=== PATIENT | female | born 1990 | race Caucasian/White ===

== ENCOUNTER 2016-12-29 08:34 | Emergency (ER) | payer BC, OTHER, SELFPAY ==
[2016-12-29] MEDS ORDERED: Ondansetron 4 MG/2 ML SDV IVPUSH ONE (09:00)
[2016-12-29] MEDS ORDERED: Sodium Chloride 0.9% 1,000 ML IV STA (09:00)
[2016-12-29] MEDS ORDERED: Sodium Chloride 0.9% 10 ML Syringe FLUSH PRN ×2 (09:00→09:53)
[2016-12-29] MEDS ORDERED: HYDROmorphone 1 MG/ML Syringe IVPUSH ONE ×2 (09:01→10:13)
--- NOTE | 2016-12-29 09:06 | EDM.PDOC ---
ED HPI GENERAL MEDICAL PROBLEM - General Chief Complaint: Abdominal Pain Stated Complaint: BACK AND ABDOMINAL PAIN Time Seen by Provider: 12/29/16 08:59 Source of Information: Reports: Patient History Limitations: Reports: No Limitations - History of Present Illness INITIAL COMMENTS - FREE TEXT/NARRATIVE: The patient presents with mid back pain and epigastric abdominal pain that started a few days ago. She was evaluated in the clinic for possible kidney stones. They did a KUB and there was concerns she has a SBO. She has nausea and vomiting. She has not had a bowel movement in a few days. She has no fever , chills, cough, chest pain or shortness of breath. She has some dysuria. She has had cholecystectomy and gastric bypass. Onset: Gradual Duration: Day(s): Location: Reports: Abdomen, Back Quality: Reports: Sharp Severity: Severe Improves with: Reports: None Worsens with: Reports: None Associated Symptoms: Reports: Nausea/Vomiting. Denies: Confusion, Chest Pain, Cough, Fever/Chills, Headaches, Shortness of Breath Back Pain Score (Numeric/FACES): 6 - Related Data Allergies Allergy/AdvReac Type Severity Reaction Status Date / Time amoxicillin Allergy Rash Verified 12/29/16 08:45 Penicillins Allergy Rash Verified 12/29/16 08:45 sulfamoxole Allergy Rash Verified 12/29/16 08:45 Home Meds: Home Meds Hydrocodone/Acetaminophen [Hydrocodon-Acetaminophn 10-325] 1 tab PO BID PRN 03/05 [History] L.acidoph,Paracasei, B.lactis [Probiotic] 1 each PO DAILY 12/29/16 [History] Losartan/Hydrochlorothiazide [Losartan-HCTZ 50-12.5 MG] 1 each PO DAILY [History] Metoclopramide HCl [Reglan] 10 mg PO Q6HR PRN #20 tablet 12/29/16 [Rx] Ondansetron [Zofran ODT] 4 mg PO Q6H PRN 12/29/16 [History] Past Medical History Cardiovascular History: Reports: Hypertension - Past Surgical History GI Surgical History: Reports: Bariatric Procedure, Cholecystectomy Social & Family History - Tobacco Use Smoking Status *Q: Current Every Day Smoker Years of Tobacco use: 3 Packs/Tins Daily: 0.3 - Caffeine Use Caffeine Use: Reports: Coffee, Energy Drinks, Soda, Tea - Recreational Drug Use Recreational Drug Use: No ED ROS GENERAL - Review of Systems Review Of Systems: See Below Constitutional: Reports: No Symptoms HEENT: Reports: No Symptoms Respiratory: Reports: No Symptoms Cardiovascular: Reports: No Symptoms Endocrine: Reports: No Symptoms GI/Abdominal: Reports: Abdominal Pain, Nausea, Vomiting. Denies: Diarrhea : Reports: Dysuria Musculoskeletal: Reports: No Symptoms Skin: Reports: No Symptoms Neurological: Reports: No Symptoms ED EXAM, GI/ABD - Physical Exam Exam: See Below Exam Limited By: No Limitations General Appearance: Alert, No Apparent Distress Ears: Normal External Exam Nose: Normal Inspection Head: Atraumatic, Normocephalic Neck: Normal Inspection Respiratory/Chest: No Respiratory Distress, Lungs Clear, Normal Breath Sounds Cardiovascular: Regular Rate, Rhythm, No Edema, No Murmur GI/Abdominal Exam: Soft, No Organomegaly, No Mass, Tender (Moderate pain to the upper abdomen) Course - Vital Signs Last Recorded V/S: Last Vital Signs Temp 97.4 F 12/29/16 08:40 Pulse 69 12/29/16 08:40 Resp 16 12/29/16 08:40 BP 143/86 H 12/29/16 08:40 Pulse Ox 96 12/29/16 08:40 - Orders/Labs/Meds Orders: Active Orders 24 hr Category Date Time Status Peripheral IV Care [RC] . DIRECTED Care 12/29/16 09:00 Active Sodium Chloride 0.9% [Saline Flush] Med 12/29/16 09:00 Active 10 ml FLUSH ASDIRECTED PRN Sodium Chloride 0.9% [Saline Flush] Med 12/29/16 09:53 Active 10 ml FLUSH ONETIME PRN ED Antiemetic Medication Reflex [OM.PC] Stat Oth 12/29/16 09:00 Ordered Peripheral IV Insertion Adult [OM.PC] Stat Oth 12/29/16 09:00 Ordered Medication Orders Sodium Chloride (Saline Flush) 10 ml FLUSH ASDIRECTED PRN PRN Reason: Keep Vein Open Last Admin: 12/29/16 09:09 Dose: 10 ml Sodium Chloride (Saline Flush) 10 ml FLUSH ONETIME PRN PRN Reason: IV FLUSH Last Admin: 12/29/16 10:42 Dose: 10 ml Labs: Laboratory Tests 12/29/16 12/29/16 12/29/16 Range/Units 08:45 08:45 08:45 WBC 5.01 (3.98-10.04) K/mm3 RBC 4.22 (3.98-5.22) M/mm3 Hgb 10.3 L (11.2-15.7) gm/L Hct 32.4 L (34.1-44.9) % MCV 76.8 L (79.4-94.8) fl MCH 24.4 L (25.6-32.2) pg MCHC 31.8 L (32.2-35.5) g/dl RDW Std Deviation 43.7 (36.4-46.3) fL Plt Count 277 (182-369) K/mm3 MPV 10.2 (9.4-12.3) fl Neut % (Auto) 60.3 (34.0-71.1) % Lymph % (Auto) 30.1 (19.3-51.7) % [place] % (Auto) 8.2 (4.7-12.5) % Eos % (Auto) 1.2 (0.7-5.8) Baso % (Auto) 0.2 (0.1-1.2) % Neut # (Auto) 3.02 (1.56-6.13) K/mm3 Lymph # (Auto) 1.51 (1.18-3.74) K/mm3 [place] # (Auto) 0.41 H (0.24-0.36) K/mm3 Eos # (Auto) 0.06 (0.04-0.36) K/mm3 Baso # (Auto) 0.01 (0.01-0.08) K/mm3 Sodium 139 (136-145) mEq/L Potassium 3.6 (3.5-5.1) mEq/L Chloride 105 (98-107) mEq/L Carbon Dioxide 24 (21-32) mEq/L Anion Gap 13.6 (5-15) BUN 6 L (7-18) mg/dL Creatinine 0.7 (0.55-1.02) mg/dL Est Cr Clr Drug Dosing 90.29 mL/min Estimated GFR (MDRD) > 60 (>60) mL/min BUN/Creatinine Ratio 8.6 L (14-18) Glucose 112 H (74-106) mg/dL Calcium 9.0 (8.5-10.1) mg/dL Total Bilirubin 0.6 (0.2-1.0) mg/dL AST 22 (15-37) U/L ALT 26 (14-59) U/L Alkaline Phosphatase 88 (46-116) U/L Total Protein 6.8 (6.4-8.2) g/dl Albumin 3.7 (3.4-5.0) g/dl Globulin 3.1 gm/dL Albumin/Globulin Ratio 1.2 (1-2) Lipase 96 (73-393) U/L HCG, Qual Negative (NEGATIVE) Urine Color (Yellow) Urine Appearance (Clear) Urine pH (5.0-8.0) Ur Specific [place] (1.005-1.030) Urine Protein (Negative) Urine Glucose (UA) (Negative) Urine Ketones (Negative) Urine Occult Blood (Negative) Urine Nitrite (Negative) Urine Bilirubin (Negative) Urine Urobilinogen (0.2-1.0) Ur Leukocyte Esterase (Negative) Urine RBC (0-5) /hpf Urine WBC (0-5) /hpf Ur Epithelial Cells (0-5) /hpf Urine Bacteria (FEW) /hpf Urine Mucus (FEW) /hpf 12/29/16 Range/Units 11:40 WBC (3.98-10.04) K/mm3 RBC (3.98-5.22) M/mm3 Hgb (11.2-15.7) gm/L Hct (34.1-44.9) % MCV (79.4-94.8) fl MCH (25.6-32.2) pg MCHC (32.2-35.5) g/dl RDW Std Deviation (36.4-46.3) fL Plt Count (182-369) K/mm3 MPV (9.4-12.3) fl Neut % (Auto) (34.0-71.1) % Lymph % (Auto) (19.3-51.7) % [place] % (Auto) (4.7-12.5) % Eos % (Auto) (0.7-5.8) Baso % (Auto) (0.1-1.2) % Neut # (Auto) (1.56-6.13) K/mm3 Lymph # (Auto) (1.18-3.74) K/mm3 [place] # (Auto) (0.24-0.36) K/mm3 Eos # (Auto) (0.04-0.36) K/mm3 Baso # (Auto) (0.01-0.08) K/mm3 Sodium (136-145) mEq/L Potassium (3.5-5.1) mEq/L Chloride (98-107) mEq/L Carbon Dioxide (21-32) mEq/L Anion Gap (5-15) BUN (7-18) mg/dL Creatinine (0.55-1.02) mg/dL Est Cr Clr Drug Dosing mL/min Estimated GFR (MDRD) (>60) mL/min BUN/Creatinine Ratio (14-18) Glucose (74-106) mg/dL Calcium (8.5-10.1) mg/dL Total Bilirubin (0.2-1.0) mg/dL AST (15-37) U/L ALT (14-59) U/L Alkaline Phosphatase (46-116) U/L Total Protein (6.4-8.2) g/dl Albumin (3.4-5.0) g/dl Globulin gm/dL Albumin/Globulin Ratio (1-2) Lipase (73-393) U/L HCG, Qual (NEGATIVE) Urine Color Yellow (Yellow) Urine Appearance Clear (Clear) Urine pH 5.5 (5.0-8.0) Ur Specific [place] 1.015 (1.005-1.030) Urine Protein Trace H (Negative) Urine Glucose (UA) Negative (Negative) Urine Ketones 1+ H (Negative) Urine Occult Blood Negative (Negative) Urine Nitrite Negative (Negative) Urine Bilirubin Negative (Negative) Urine Urobilinogen 0.2 (0.2-1.0) Ur Leukocyte Esterase Negative (Negative) Urine RBC Not seen (0-5) /hpf Urine WBC 5-10 H (0-5) /hpf Ur Epithelial Cells 10-20 H (0-5) /hpf Urine Bacteria Few (FEW) /hpf Urine Mucus Few (FEW) /hpf Meds: Medications Generic Name Dose Route Start Last Admin Trade Name Freq PRN Reason Stop Dose Admin Sodium Chloride 10 ml 12/29/16 09:00 12/29/16 09:09 Saline Flush FLUSH 10 ml ASDIRECTED PRN Administration Keep Vein Open Sodium Chloride 10 ml 12/29/16 09:53 12/29/16 10:42 Saline Flush FLUSH 10 ml ONETIME PRN Administration IV FLUSH Discontinued Medications Generic Name Dose Route Start Last Admin Trade Name Danny PRN Reason Stop Dose Admin Diatrizoate Meglum/Diatrizoate Sod 45 ml 12/29/16 09:53 12/29/16 10:42 Gastrografin 37% PO 12/29/16 09:54 45 ml ONETIME ONE Administration Hydromorphone HCl 1 mg 12/29/16 09:01 12/29/16 09:09 Dilaudid IVPUSH 12/29/16 09:02 1 mg ONETIME ONE Administration Hydromorphone HCl 1 mg 12/29/16 10:13 12/29/16 10:17 Dilaudid IVPUSH 12/29/16 10:14 1 mg ONETIME ONE Administration Sodium Chloride 1,000 mls @ 1,000 mls/hr 12/29/16 09:00 12/29/16 09:07 Normal Saline IV 12/29/16 09:59 1,000 mls/hr .BOLUS STA Administration Iopamidol 125 ml 12/29/16 09:53 12/29/16 10:41 Isovue-300 (61%) IVPUSH 12/29/16 09:54 125 ml ONETIME ONE Administration Metoclopramide HCl 10 mg 12/29/16 10:25 12/29/16 10:29 Reglan IVPUSH 12/29/16 10:26 10 mg ONETIME ONE Administration Ondansetron HCl 4 mg 12/29/16 09:00 12/29/16 09:07 Zofran IVPUSH 12/29/16 09:01 4 mg ONETIME ONE Administration - Re-Assessments/Exams Free Text/Narrative Re-Assessment/Exam: 12/29/16 09:06 I ordered an IV NS 1L bolus, zofran 4mg IV, dilaudid 1mg IV, labs, UA and a CT of her abdomen and pelvis. 12/29/16 11:38 Her CBC and CMP look good. Her HCG is negative. She had more pain so I ordered more dilaudid 1mg IV. Her CT shows nothing acute. She has some small cysts on both kidneys. No findings to suggest bowel obstruction by CT exam. She can give us a urine sample now. 12/29/16 12:09 Her UA shows no UTI. I feel she had and early bowel obstruction and now that has resolved on CT. I will have her start out with liquids today and advance her diet as tolerated. Departure - Departure Time of Disposition: 12:10 Disposition: Home, Self-Care 01 Condition: Good Clinical Impression: Abdominal pain Qualifiers: Abdominal location: epigastric Qualified Code(s): R10.13 - Epigastric pain - Discharge Information Prescriptions: Metoclopramide HCl [Reglan] 10 mg PO Q6HR PRN #20 tablet PRN Reason: Nausea/Vomiting Referrals: Virginie Glass, [facility] [facility] [Primary Care Provider] - 1 Week Forms: ED Department Discharge Additional Instructions: Start off with just liquids today and advance your diet as tolerated. Take the reglan for any nausea or vomiting. Please return if the pain gets worse and constant. Follow up with Virginie Glass in the next week. - My Orders Last 24 Hours: My Active Orders 12/29/16 09:00 Peripheral IV Care [RC] . DIRECTED Sodium Chloride 0.9% [Saline Flush] 10 ml FLUSH ASDIRECTED PRN ED Antiemetic Medication Reflex [OM.PC] Stat Peripheral IV Insertion Adult [OM.PC] Stat 12/29/16 09:53 Sodium Chloride 0.9% [Saline Flush] 10 ml FLUSH ONETIME PRN - Assessment/Plan Last 24 Hours: My Active Orders 12/29/16 09:00 Peripheral IV Care [RC] . DIRECTED Sodium Chloride 0.9% [Saline Flush] 10 ml FLUSH ASDIRECTED PRN ED Antiemetic Medication Reflex [OM.PC] Stat Peripheral IV Insertion Adult [OM.PC] Stat 12/29/16 09:53 Sodium Chloride 0.9% [Saline Flush] 10 ml FLUSH ONETIME PRN
[2016-12-29] MEDS ORDERED: Iopamidol 612 MG/ML 150 ML Bottle IVPUSH ONE (09:53)
[2016-12-29] MEDS ORDERED: Diatrizoate Meglumine/Diatrizoate Sodium 37% 120 ML Bottle PO ONE (09:53)
[2016-12-29] MEDS ORDERED: Metoclopramide 10 MG/2 ML SDV IVPUSH ONE (10:25)
--- NOTE | 2016-12-29 11:39 | CT ---
CT abdomen and pelvis Technique: Multiple axial sections were obtained from above the dome of the diaphragm inferiorly through the pubic symphysis. Intravenous and oral contrast has been given. Delayed images were also obtained through the bladder. Comparison: Previous plain film study of 12/28/16. Findings: Small portion of the visualized lung bases show slight atelectasis. Liver shows no focal parenchymal abnormality. Surgical clips are seen from prior cholecystectomy. Kidneys show symmetric contrast enhancement. Small low-density lesion most likely representing minimal cyst is noted within the mid left kidney measuring about 5 mm. Smaller low-density lesion is seen within the mid to lower right kidney most likely due to additional minimal cyst. Spleen appears within normal limits. Adrenal glands show no nodule. Pancreas is within normal limits. Aorta shows no aneurysmal dilatation. No retroperitoneal adenopathy or mesenteric abnormalities are seen. No significant small bowel dilatation is seen. Nothing appreciated to indicate bowel obstruction at this time. Appendix is seen which is felt to be within normal limits. No pelvic mass or adenopathy is seen. Previous gastric surgery appears to be present. Delayed images shows contrast within the distal ureters and bladder. Bone window settings were reviewed which appear within normal limits for the patient's age. Impression: 1. No findings to suggest bowel obstruction by CT exam. 2. Small cyst believed to be present within each kidney. 3. Nothing acute is appreciated on CT study of the abdomen and pelvis. 4. Other incidental findings. Diagnostic code #2
== END 2016-12-29 12:19 | disposition home or self-care (01) ==
LOC: JD.ED 08:34
DX: R10.13 Epigastric pain (principal); F17.210 Nicotine dependence, cigarettes, uncomplicated; I10 Essential (primary) hypertension; Z88.1 Allergy status to other antibiotic agents; Z88.0 Allergy status to penicillin; Z88.2 Allergy status to sulfonamides
CPT/HCPCS: 36415; 74177; 80053; 81001; 83690; 84703; 85025; 96361; 96374; 96375; 96376; 99284; J1170; J2405; J2765; J7040; J7050; Q9963; Q9967

== ENCOUNTER 2019-11-29 05:53 | Inpatient (IN) | payer BC ==
[2019-11-29] MEDS ORDERED: Nalbuphine 10 MG/ML Syringe IVPUSH PRN (07:20)
[2019-11-29] MEDS ORDERED: Sodium Chloride 0.9% 10 ML Syringe FLUSH PRN (07:20)
[2019-11-29] MEDS ORDERED: Ondansetron 4 MG/2 ML SDV IVPUSH PRN (07:20)
[2019-11-29] MEDS ORDERED: Oxytocin/Lactated Ringers 10 UNIT/1,000 ML BAG IV SCH (07:30)
[2019-11-29] MEDS ORDERED: ceFAZolin 2 GM in Premix Bag 1 BAG IV ONE (08:00)
[2019-11-29] MEDS: Lactated Ringers 1,000 ML IV SCH ×5 (08:02→23:21)
[2019-11-29] MEDS: Oxytocin/Lactated Ringers 10 UNIT/1,000 ML BAG IV SCH ×2 (08:05→23:30)
--- NOTE | 2019-11-29 11:10 | PCM.LDHP ---
L&D History of Present Illness - General Date of Service: 11/29/19 Admit Problem/Dx: Patient Status Order with Admit Dx/Problem 11/29/19 06:04 Patient Status [ADT] Routine 11/29/19 07:20 Patient Status [ADT] Routine Admission Diagnosis/Problem Admission Diagnosis/Problem Source of Information: Patient History Limitations: Reports: No Limitations - History of Present Illness Introduction:: Luciana Loyola is a 29-year-old -0-1-0 at 36 weeks 6 days (LMP 12/21/2019) by an early ultrasound who presents for evaluation with possible rupture membranes. She reports that in the evening of 11/28/2019 she had a small gush of clear fluid after she had gone to the bathroom and then this continued throughout the evening with small amounts of fluid continuing to leak out of the vagina. She had a pad in place and noted that it was a clear fluid without any odor and was enough to soak a pad. She denies any significant cramping's but was having some occasional tightening in her abdomen that was overall unchanged from the last week or so. She reports good movement. Timing/Duration: Reports: constant/continuous (Leaking of clear fluid since around 10:30 PM last evening) Location, : Reports: Pelvic Quality: Reports: Pressure Severity: Mild Associated Symptoms: Reports: vaginal fluid, mild amount. Denies: vaginal bleeding, vaginal discharge Present Illness Comments:: Luciana Loyola is a 29-year-old -0-1-0 at 36 weeks 6 days (JAVIER 12/21/2019) by an early ultrasound who presents with spontaneous rupture of membranes. She has had routine care with myself, Dr. Martines, starting at approximately 6 weeks gestational age. Her course has been overall uncomplicated with only recent mild elevations in her blood pressure. She has a history of chronic hypertension. She received Tdap vaccine on 10/07/2019. Her is complicated by: * GBS positive with history of nonpruritic rash on amoxicillin. GBS strain is resistant to clindamycin but sensitive to vancomycin * Chronic hypertension, patient has been on aspirin 81 mg starting at 12 weeks gestational age. Mild range blood pressures over the last several weeks of her * History of gastric bypass with normal vitamin and mineral labs during . No other significant concerns regarding gastric bypass. * History of genital herpes and has been on Valtrex starting at 36 weeks gestational age MANAGER BUSINESS history G1: 06/2007, SAB at approximately 6 weeks gestational age G2: Current labs Blood type: O+ Antibody screen: Negative First trimester hematocrit/hemoglobin: 42.6%/14.3 on 04/23/2019 Platelets: 256 on 04/23/2019 Rubella status: Immune Hepatitis B surface antigen: Negative RPR: Negative HIV: Negative Gonorrhea: Negative Chlamydia: Negative Anatomy ultrasound: Normal anatomy, no abnormalities, 67th percentile with EFW 3064 g (6 pounds 12 ounces) on 11/26/2019, posterior and right lateral placenta, no previa, normal fluid on 11/26/2019 One hour glucose tolerance test: Normal blood glucose testing when checking fingerstick blood sugars at 24 to 26 weeks gestational age Second trimester hematocrit/hemoglobin: 35.2%/11.7 on 09/18/2019 Platelets: 232 on 09/18/2019 Third trimester hematocrit/hemoglobin: 35.3%/11.5 on 11/06/2019 Platelets: 221 on 11/06/2019 GBS status: Positive with resistant to clindamycin, sensitive to vancomycin - Related Data Allergies/Adverse Reactions: Allergies Allergy/AdvReac Type Severity Reaction Status Date / Time amoxicillin Allergy Rash Verified 11/29/19 07:20 Penicillins Allergy Rash Verified 11/29/19 07:20 sulfamoxole Allergy Rash Verified 11/29/19 07:20 Home Medications: Home Meds Aspirin 81 mg PO DAILY 11/29/19 [History] Cholecalciferol (Vitamin D3) [Vitamin D] 5,000 unit PO DAILY 11/29/19 [History] Cimetidine [Tagamet] 200 mg PO 11/29/19 [History] Cyclobenzaprine [Flexeril] 10 mg PO TID PRN 11/29/19 [History] L.acidoph,Paracasei, B.lactis [Probiotic] 1 each PO DAILY 11/29/19 [History] Pnv No.95/Ferrous Fum/Folic AC [ Tablet] 1 each PO DAILY 11/29/19 [History] valACYclovir HCl [Valtrex] 500 mg PO BID 11/29/19 [History] Past Medical History Cardiovascular History: Reports: Hypertension (Chronic, on lisinopril prior to ) Genitourinary History: Reports: Renal Calculus (History of kidney stones in 2009) MANAGER BUSINESS History: Reports: , Spontaneous : 2 Para: 0 Dermatologic History: Reports: Eczema Other Dermatologic History: HSV - Infectious Disease History Infectious Disease History: Reports: Herpes (Genital) - Past Surgical History GI Surgical History: Reports: Bariatric Procedure (Yoanna-en-Y gastric bypass done in 2013), Cholecystectomy (2011) Social & Family History - Family History Family Medical History: Noncontributory - Tobacco Use Smoking Status *Q: Never Smoker Second Hand Smoke Exposure: No - Tobacco Core Measures Tobacco Use/Smoking Within Last 30 Days: No Smokeless Tobacco Use in Last 30 Days: No - Caffeine Use Caffeine Use: Reports: Coffee, Energy Drinks, Soda, Tea - Alcohol Use Alcohol Use History: No - Recreational Drug Use Recreational Drug Use: No - Living Situation & Occupation Living situation: Reports: Single, with Significant Other Occupation: Employed H&P Review of Systems - Review of Systems: Review Of Systems: See Below General: Denies: Fever, Chills, Malaise, Weakness, Fatigue HEENT: Reports: Glasses. Denies: Rhinitis, Post Nasal Drip, Sinus Congestion, Sore Throat Pulmonary: Denies: Shortness of Breath, Wheezing, Pleuritic Chest Pain, Cough Cardiovascular: Reports: Palpitations (Reports that she has been having increased amounts of palpitations over the last few days). Denies: Chest Pain, Dyspnea on Exertion, Orthopnea Gastrointestinal: Denies: Abdominal Pain, Constipation, Diarrhea, Nausea, Vomiting Genitourinary: Denies: Dysuria, Frequency, Burning, Pain, Urgency Musculoskeletal: Reports: Back Pain (And pelvic pain) Skin: Denies: Rash, Lesions Psychiatric: Denies: Depression, Anxiety Neurological: Denies: Headache L&D Exam - Exam Exam: See Below - Vital Signs Vital Signs: Last Vital Signs Temp 36.6 C 11/29/19 06:04 Pulse 82 11/29/19 06:04 Resp 14 11/29/19 06:04 BP 128/95 H 11/29/19 06:04 Pulse Ox 97 11/29/19 06:04 Weight: 453.592 g - OB Specific Contraction Duration (sec): 45-60 Contraction Frequency (min): 1-3 Contraction Intensity: Mild to Moderate Movement: Active Heart Tones: Present Heart Tones per Min: 150 (+15 x 15 accelerations, intermittent variable decelerations) Heart Rate (FHR) Variability: Moderate (6-25 bmp) Presentation: Vertex Estimated Weight: 7-7.5 pounds by Isaias's - Adler Score Adler Score Cervix Position: Midposition Adler Score Consistency: Soft Adler Score Effacement: 51-70% (60%) Adler Score Dilation: 1-2 cm (2.5 cm) Daler Score Infant's Station: -2 Adler Score Total: 7 - Exam General: Alert, Oriented HEENT: Conjunctiva Clear, EOMI Neck: Supple, Trachea Midline Lungs: Clear to Auscultation, Normal Respiratory Effort Cardiovascular: Regular Rate, Regular Rhythm GI/Abdominal Exam: Soft, Non-Tender, No Distention, Other (Gravid). No: Guarding, Rigid, Rebound Genitourinary: Normal external exam Extremities: Normal Inspection, Non-Tender, No Pedal Edema Skin: Warm, Dry, Intact Psychiatric: Alert, Normal Affect, Normal Mood - Patient Data Lab Results Last 24 hrs: Laboratory Results - last 24 hr 11/29/19 11/29/19 11/29/19 Range/Units 06:15 06:19 07:40 WBC 9.01 (3.98-10.04) K/mm3 RBC 3.95 L (3.98-5.22) M/mm3 Hgb 11.9 (11.2-15.7) gm/dl Hct 36.5 (34.1-44.9) % MCV 92.4 (79.4-94.8) fl MCH 30.1 (25.6-32.2) pg MCHC 32.6 (32.2-35.5) g/dl RDW Std Deviation 45.1 (36.4-46.3) fL Plt Count 230 (182-369) K/mm3 MPV 10.1 (9.4-12.3) fl Neut % (Auto) 76.3 H (34.0-71.1) % Lymph % (Auto) 14.2 L (19.3-51.7) % Reynolds % (Auto) 8.3 (4.7-12.5) % Eos % (Auto) 0.4 L (0.7-5.8) Baso % (Auto) 0.2 (0.1-1.2) % Neut # (Auto) 6.87 H (1.56-6.13) K/mm3 Lymph # (Auto) 1.28 (1.18-3.74) K/mm3 Reynolds # (Auto) 0.75 H (0.24-0.36) K/mm3 Eos # (Auto) 0.04 (0.04-0.36) K/mm3 Baso # (Auto) 0.02 (0.01-0.08) K/mm3 Membrane Rupture Positive H COVID-19 (HARMEET) Negative (NEGATIVE) Result Diagrams: 11/29/19 07:40 - Problem List (1) 36 weeks gestation of SNOMED Code(s): 96978234 ICD Code: Z3A.36 - 36 WEEKS GESTATION OF Status: Acute Current Visit: Yes (2) Chronic hypertension during SNOMED Code(s): 62294780 ICD Code: O10.919 - UNSP PRE-EXISTING HTN COMP , UNSP TRIMESTER Status: Acute Current Visit: Yes (3) GBS (group B Streptococcus carrier), +RV culture, currently SNOMED Code(s): 4336213909189, 230869321, 9435036842951 ICD Code: O99.820 - STREPTOCOCCUS B CARRIER STATE COMPLICATING Status: Acute Current Visit: Yes (4) Penicillin allergy SNOMED Code(s): 03776591 ICD Code: Z88.0 - ALLERGY STATUS TO PENICILLIN Status: Acute Current Visit: Yes (5) History of gastric bypass SNOMED Code(s): 985460166 ICD Code: Z98.84 - BARIATRIC SURGERY STATUS Status: Acute Current Visit: Yes (6) History of herpes genitalis SNOMED Code(s): 551931798 ICD Code: Z86.19 - PERSONAL HISTORY OF OTHER INFECTIOUS AND PARASITIC DISEASES Status: Acute Current Visit: Yes Problem List Initiated/Reviewed/Updated: Yes Orders Last 24hrs: Active Orders 24 hr Category Date Time Status Patient Status [ADT] Routine ADT 11/29/19 06:04 Active Patient Status [ADT] Routine ADT 11/29/19 07:20 Active Activity as Tolerated [RC] PFP Care 11/29/19 07:20 Active Communication Order [RC] ASDIRECTED Care 11/29/19 07:20 Active Heart Tones [RC] ASDIRECTED Care 11/29/19 07:20 Active Non Stress Test [RC] PER UNIT ROUTINE Care 11/29/19 06:04 Active Non Stress Test [RC] PER UNIT ROUTINE Care 11/29/19 07:20 Active Notify Provider [RC] PFP Care 11/29/19 07:20 Active Notify Provider [RC] PRN Care 11/29/19 07:20 Active Peripheral IV Care [RC] . DIRECTED Care 11/29/19 07:20 Active Vital Signs [RC] PER UNIT ROUTINE Care 11/29/19 06:04 Active Vital Signs [RC] PER UNIT ROUTINE Care 11/29/19 07:20 Active Regular Diet [DIET] Diet 11/29/19 Breakfast Active RAPID PLASMA REAGIN,RPR [CHEM] Routine Lab 11/29/19 07:40 Received Lactated Ringers [Ringers, Lactated] 1,000 ml Med 11/29/19 07:30 Active IV ASDIRECTED Nalbuphine [Nubain] Med 11/29/19 07:20 Active 10 mg IVPUSH Q2H PRN Ondansetron [Zofran] Med 11/29/19 07:20 Active 4 mg IVPUSH Q4H PRN Oxytocin/Lactated Ringers [Pitocin in LR 10 Units/1,000 Med 11/29/19 07:30 Active ML] 10 unit in 1,000 ml IV .CONTINUOUS Oxytocin/Lactated Ringers [Pitocin in LR 10 Units/1,000 Med 11/29/19 07:30 Active ML] 10 unit in 1,000 ml IV TITRATE Sodium Chloride 0.9% [Saline Flush] Med 11/29/19 07:20 Active 10 ml FLUSH ASDIRECTED PRN ceFAZolin [Ancef] 1 gm Med 11/29/19 16:00 Active Premix Bag 1 bag IV Q8H Electronic Heart Tones Ext w TOCO [WOMSER] Oth 11/29/19 07:20 Ordered Routine Electronic Heart Tones Internal [WOMSER] Per Unit Oth 11/29/19 07:20 Ordered Routine Peripheral IV Insertion Adult [OM.PC] Routine Oth 11/29/19 07:20 Ordered Resuscitation Status Routine Resus Stat 11/29/19 06:04 Ordered Medication Orders Lactated Ringer's (Ringers, Lactated) 1,000 mls @ 100 mls/hr IV ASDIRECTED ANURAG Last Admin: 11/29/19 08:02 Dose: 100 mls/hr Documented by: VENANCIO Cefazolin Sodium/Dextrose 1 gm (/ Premix) 50 mls @ 100 mls/hr IV Q8H ANURAG Oxytocin/Lactated Ringer's (Pitocin In Lr 10 Units/1,000 Ml) 10 unit in 1,000 mls @ 12 mls/hr IV TITRATE ANURAG; Protocol Last Titration: 11/29/19 10:24 Dose: 8 munits/min, 48 mls/hr Documented by: Titration: 11/29/19 09:47 Dose: 6 munits/min, 36 mls/hr Documented by: Titration: 11/29/19 09:03 Dose: 4 munits/min, 24 mls/hr Documented by: Admin: 11/29/19 08:05 Dose: 2 munits/min, 12 mls/hr Documented by: VENANCIO Oxytocin/Lactated Ringer's (Pitocin In Lr 10 Units/1,000 Ml) 10 unit in 1,000 mls @ 500 mls/hr IV .CONTINUOUS ANURAG Nalbuphine HCl (Nubain) 10 mg IVPUSH Q2H PRN PRN Reason: Pain Ondansetron HCl (Zofran) 4 mg IVPUSH Q4H PRN PRN Reason: Nausea/Vomiting Sodium Chloride (Saline Flush) 10 ml FLUSH ASDIRECTED PRN PRN Reason: Keep Vein Open Assessment/Plan Comment:: Luciana Loyola is a 29-year-old -0-1-0 female at 36 weeks 6 days with prelabor rupture of membranes at 36 weeks gestational age complicated by GBS positive status with mild penicillin allergy, chronic hypertension in , history of Yoanna-en-Y gastric bypass and history of genital herpes On exam patient was noted to have a fore bag and an [place] was used to rupture the fore bag. A moderate amount of clear fluid was returned after rupture of membranes of the fore bag. Mother and tolerated procedure without difficulty. Refer to observation for spontaneous rupture of membranes Start Pitocin for augmentation of labor due to no active labor contractions with 10 hours of rupture membranes Continuous monitoring Place IV and have Lactated Ringer's at 125 ml/hr May have small amounts of regular diet Activity as tolerated May have epidural as desired Plans to breast-feed after delivery Patient given test dose of Ancef and did well and received Ancef 2 g IV for initial dose of GBS prophylaxis. Patient to continue on Ancef 1 g IV every 8 hours for GBS prophylaxis. Anticipate vaginal delivery unless otherwise indicated Robert Martines MD 11:21 AM 11/29/2019
[2019-11-29] MEDS ORDERED: diphenhydrAMINE 50 MG/ML SDV IVPUSH PRN (11:55)
[2019-11-29] MEDS ORDERED: fentaNYL 100 MCG/2 ML SDV EPIDUR PRN (11:55)
[2019-11-29] MEDS ORDERED: ePHEDrine 50 MG/ML SDV IVPUSH PRN (11:55)
--- NOTE | 2019-11-29 12:05 | PCM.PREANE ---
Preanesthetic Assessment - Procedure Proposed Procedure: susie - Anesthesia/Transfusion/Family Hx Anesthesia History: Prior Anesthesia Without Reaction Family History of Anesthesia Reaction: No Transfusion History: No Prior Transfusion(s) - Review of Systems General: No Symptoms Pulmonary: No Symptoms Cardiovascular: No Symptoms Gastrointestinal: No Symptoms Neurological: No Symptoms Other: Reports: None - Physical Assessment Vital Signs: Last Vital Signs Temp 97.9 F 11/29/19 06:04 Pulse 82 11/29/19 06:04 Resp 14 11/29/19 06:04 BP 128/95 H 11/29/19 06:04 Pulse Ox 97 11/29/19 06:04 Height: 5 ft 1 in Weight: 79.605 kg ASA Class: 2 Mental Status: Alert & Oriented x3 Airway Class: Mallampati = 1 Dentition: Reports: Normal Dentition Thyro-Mental Finger Breadths: 3 Mouth Opening Finger Breadths: 3 ROM/Head Extension: Full Lungs: Clear to Auscultation, Normal Respiratory Effort Cardiovascular: Regular Rate, Regular Rhythm - Lab Values: Laboratory Last Values WBC 9.01 K/mm3 (3.98-10.04) 11/29/19 07:40 RBC 3.95 M/mm3 (3.98-5.22) L 11/29/19 07:40 Hgb 11.9 gm/dl (11.2-15.7) 11/29/19 07:40 Hct 36.5 % (34.1-44.9) 11/29/19 07:40 MCV 92.4 fl (79.4-94.8) 11/29/19 07:40 MCH 30.1 pg (25.6-32.2) 11/29/19 07:40 MCHC 32.6 g/dl (32.2-35.5) 11/29/19 07:40 RDW Std Deviation 45.1 fL (36.4-46.3) 11/29/19 07:40 Plt Count 230 K/mm3 (182-369) 11/29/19 07:40 MPV 10.1 fl (9.4-12.3) 11/29/19 07:40 Neut % (Auto) 76.3 % (34.0-71.1) H 11/29/19 07:40 Lymph % (Auto) 14.2 % (19.3-51.7) L 11/29/19 07:40 [place] % (Auto) 8.3 % (4.7-12.5) 11/29/19 07:40 Eos % (Auto) 0.4 (0.7-5.8) L 11/29/19 07:40 Baso % (Auto) 0.2 % (0.1-1.2) 11/29/19 07:40 Neut # (Auto) 6.87 K/mm3 (1.56-6.13) H 11/29/19 07:40 Lymph # (Auto) 1.28 K/mm3 (1.18-3.74) 11/29/19 07:40 [place] # (Auto) 0.75 K/mm3 (0.24-0.36) H 11/29/19 07:40 Eos # (Auto) 0.04 K/mm3 (0.04-0.36) 11/29/19 07:40 Baso # (Auto) 0.02 K/mm3 (0.01-0.08) 11/29/19 07:40 Membrane Rupture Positive H 11/29/19 06:19 COVID-19 (HARMEET) Negative (NEGATIVE) 11/29/19 06:15 - Allergies Allergies/Adverse Reactions: Allergies Allergy/AdvReac Type Severity Reaction Status Date / Time amoxicillin Allergy Rash Verified 11/29/19 07:20 Penicillins Allergy Rash Verified 11/29/19 07:20 sulfamoxole Allergy Rash Verified 11/29/19 07:20 - Blood Blood Available: No - Acknowledgements Anesthesia Type Planned: Epidural Pt an Appropriate Candidate for the Planned Anesthesia: Yes Alternatives and Risks of Anesthesia Discussed w Pt/Guardian: Yes Pt/Guardian Understands and Agrees with Anesthesia Plan: Yes PreAnesthesia Questionnaire Cardiovascular History: Reports: Hypertension (Chronic, on lisinopril prior to ). Denies: Cardiomyopathy Respiratory History: Reports: None Gastrointestinal History: Reports: GERD (daily) Genitourinary History: Reports: Renal Calculus (History of kidney stones in 2009) [employer] History: Reports: , Spontaneous : 2 (36 6) Para: 0 Oncologic (Cancer) History: Reports: None Dermatologic History: Reports: Eczema Other Dermatologic History: HSV - Infectious Disease History Infectious Disease History: Reports: Herpes (Genital) - Past Surgical History GI Surgical History: Reports: Bariatric Procedure (Yoanna-en-Y gastric bypass done in 2013), Cholecystectomy (2011) - SUBSTANCE USE Smoking Status *Q: Former Smoker (quit last october) Tobacco Use Within Last Twelve Months: No Second Hand Smoke Exposure: No Days Per Week of Alcohol Use: 0 Recreational Drug Use History: No - HOME MEDS Home Medications: Home Meds Aspirin 81 mg PO DAILY 11/29/19 [History] Cholecalciferol (Vitamin D3) [Vitamin D] 5,000 unit PO DAILY 11/29/19 [History] Cimetidine [Tagamet] 200 mg PO 11/29/19 [History] Cyclobenzaprine [Flexeril] 10 mg PO TID PRN 11/29/19 [History] L.acidoph,Paracasei, B.lactis [Probiotic] 1 each PO DAILY 11/29/19 [History] Pnv No.95/Ferrous Fum/Folic AC [ Tablet] 1 each PO DAILY 11/29/19 [H istory] valACYclovir HCl [Valtrex] 500 mg PO BID 11/29/19 [History] - CURRENT (IN HOUSE) MEDS Current Meds: Current Medications Diphenhydramine HCl (Benadryl) 25 mg IVPUSH Q6H PRN PRN Reason: pruritis Ephedrine Sulfate (Ephedrine Sulfate) 5 mg IVPUSH ASDIRECTED PRN PRN Reason: Hypotension Fentanyl (Sublimaze) 100 mcg EPIDUR Q3H PRN PRN Reason: Pain Fentanyl/Bupivacaine HCl (Fentanyl/Bupivacaine/Ns 2 Mcg-0.125% 100 Ml) 100 ml EPIDUR ASDIRECTED PRN PRN Reason: Pain Lactated Ringer's (Ringers, Lactated) 1,000 mls @ 100 mls/hr IV ASDIRECTED ANURAG Last Admin: 11/29/19 08:02 Dose: 100 mls/hr Documented by: Cefazolin Sodium/Dextrose 1 gm (/ Premix) 50 mls @ 100 mls/hr IV Q8H ANURAG Oxytocin/Lactated Ringer's (Pitocin In Lr 10 Units/1,000 Ml) 10 unit in 1,000 mls @ 12 mls/hr IV TITRATE ANURAG; Protocol Last Titration: 11/29/19 11:54 Dose: 8 munits/min, 48 mls/hr Documented by: Oxytocin/Lactated Ringer's (Pitocin In Lr 10 Units/1,000 Ml) 10 unit in 1,000 mls @ 500 mls/hr IV .CONTINUOUS ANURAG Nalbuphine HCl (Nubain) 10 mg IVPUSH Q2H PRN PRN Reason: Pain Ondansetron HCl (Zofran) 4 mg IVPUSH Q4H PRN PRN Reason: Nausea/Vomiting Sodium Chloride (Saline Flush) 10 ml FLUSH ASDIRECTED PRN PRN Reason: Keep Vein Open Discontinued Medications Cefazolin Sodium/Dextrose 2 gm (/ Premix) 50 mls @ 100 mls/hr IV ONETIME ONE Stop: 11/29/19 08:29 Last Admin: 11/29/19 08:08 Dose: 100 mls/hr Documented by:
[2019-11-29] MEDS: Bupivacaine/fentaNYL/NS 100 ML Bag EPIDUR PRN ×2 (12:07→22:09)
[2019-11-29] MEDS: ceFAZolin 1 GM in Premix Bag 1 BAG IV SCH ×2 (16:17→23:26)
[2019-11-29] MEDS ORDERED: Sodium Chloride 0.9% 1,000 ML ONE (18:36)
--- NOTE | 2019-11-29 19:38 | PCM.PNLD ---
Labor Progress Note - VS & Meds Vital Signs: Last Vital Signs Temp 36.6 C 11/29/19 06:04 Pulse 82 11/29/19 06:04 Resp 14 11/29/19 06:04 BP 128/95 H 11/29/19 06:04 Pulse Ox 97 11/29/19 06:04 Active Medications: Current Medications Diphenhydramine HCl (Benadryl) 25 mg IVPUSH Q6H PRN PRN Reason: pruritis Ephedrine Sulfate (Ephedrine Sulfate) 5 mg IVPUSH ASDIRECTED PRN PRN Reason: Hypotension Fentanyl (Sublimaze) 100 mcg EPIDUR Q3H PRN PRN Reason: Pain Last Admin: 11/29/19 12:07 Dose: 100 mcg Documented by: Fentanyl/Bupivacaine HCl (Fentanyl/Bupivacaine/Ns 2 Mcg-0.125% 100 Ml) 100 ml EPIDUR ASDIRECTED PRN PRN Reason: Pain Last Admin: 11/29/19 12:07 Dose: 100 ml Documented by: Lactated Ringer's (Ringers, Lactated) 1,000 mls @ 100 mls/hr IV ASDIRECTED ANURAG Last Admin: 11/29/19 16:14 Dose: 100 mls/hr Documented by: Cefazolin Sodium/Dextrose 1 gm (/ Premix) 50 mls @ 100 mls/hr IV Q8H ANURAG Last Admin: 11/29/19 16:17 Dose: 100 mls/hr Documented by: Oxytocin/Lactated Ringer's (Pitocin In Lr 10 Units/1,000 Ml) 10 unit in 1,000 mls @ 12 mls/hr IV TITRATE ANURAG; Protocol Last Titration: 11/29/19 16:03 Dose: 0 munits/min, 0 mls/hr Documented by: Oxytocin/Lactated Ringer's (Pitocin In Lr 10 Units/1,000 Ml) 10 unit in 1,000 mls @ 500 mls/hr IV .CONTINUOUS ANURAG Nalbuphine HCl (Nubain) 10 mg IVPUSH Q2H PRN PRN Reason: Pain Ondansetron HCl (Zofran) 4 mg IVPUSH Q4H PRN PRN Reason: Nausea/Vomiting Sodium Chloride (Saline Flush) 10 ml FLUSH ASDIRECTED PRN PRN Reason: Keep Vein Open Discontinued Medications Cefazolin Sodium/Dextrose 2 gm (/ Premix) 50 mls @ 100 mls/hr IV ONETIME ONE Stop: 11/29/19 08:29 Last Admin: 11/29/19 08:08 Dose: 100 mls/hr Documented by: Sodium Chloride (Normal Saline) Confirm Administered Dose 1,000 mls @ as directed .ROUTE .STK-MED ONE Stop: 11/29/19 18:37 Last Admin: 11/29/19 19:04 Dose: 500 mls/hr Documented by: - Uterine Contractions Contraction Frequency (min): 2-4 Contraction Duration (sec): 30-60 Contraction Intensity: Moderate to Strong Uterine Resting Tone: Soft - Monitoring Monitor Mode: Doppler/Auscultation Heart Rate (FHR) Baseline: 150 Heart Rate (FHR) Variability: Moderate (6-25 bmp) Accelerations: Absent Decelerations: Variable, Recurrent (>50% x 20 min) Strip Review: Category II - Vaginal Exam Dilation (cm): 8 Effacement (Percent): 100 Station: 0 Cervical Position: Anterior Sterile Vaginal Exam Performed By: Robert Martines Vaginal Exam Comment: Patient with recurrent variable decelerations down into the 80 to 90s. Discussion was had with the patient regarding use of intr auterine pressure catheter with amnioinfusion. Reviewed risks and benefits with the patient and she states understanding. Patient gave verbal consent that she desired to proceed with amnio infusion. Intrauterine pressure catheter placed without difficulty. Mother and infant tolerated procedure without difficulty. - Labor Progress (Free Text) Labor Progress: Patient continuing to progress well at this time Continues to have mild range blood pressures consistent with chronic hypertension Patient with epidural in place and providing good anesthesia Category 2 tracing with recurrent variable decelerations with moderate variability after deceleration Intrauterine pressure catheter placed for closer monitoring of contractions as well as amnioinfusion Amnioinfusion to be started with 500 mL fluid bolus of normal saline then to continue at 50 mL/h with good return of fluid Continue Ancef 1 g IV for antibiotic prophylaxis for GBS Anticipate vaginal delivery unless otherwise indicated Robert Martines MD 7:37 PM 11/29/2019
[2019-11-29] MEDS ORDERED: Sodium Chloride 0.9% 1,000 ML IRR PRN (20:09)
[2019-11-29] MEDS ORDERED: Acetaminophen 325 MG Tab PO ONE (21:11)
[2019-11-30] MEDS ORDERED: Bupivacaine 0.25% 10 ML SDV ONE
--- NOTE | 2019-11-30 01:20 | PCM.DEL ---
L & D Note - General Info Date of Service: 11/30/19 Mother's Due Date: 12/21/19 - Delivery Note Labor: Augmented by Oxytocin Delivery Outcome: Livebirth Infant Delivery Method: Spontaneous Vaginal Delivery-Single Presentation: Right Occiput Anterior (SUSHIL) Nuchal Cord: Present (Tight around 's neck and not able to be reduced prior to delivery) Anesthesia Type: Epidural Episiotomy Type: None Laceration: 2nd Degree (Midline perineal laceration that was repaired with 3-0 and 4-0 Vicryl. She had a laceration on the skin of the perineal body that was repaired with interrupted sutures of 4-0 Vicryl.) Suture type: Vicryl Suture size: 3-0 Placenta: Intact, Spontaneous Cord: 3 Vessels Estimated Blood Loss: 450 Resuscitation Needed: No [place]: Suctioned, Bulb Syringe, Stimulated, Warmed, [place] Used, Warmer Used Provider: Robert Martines Score 1 min: 8 Score 5 min: 9 Second Stage Interventions: Reports: Pushing Effectively, Pushing, Stirrups/Leg Supports Delivery Comments (Free Text/Narrative):: Stage I: Luciana Loyola was admitted for prelabor rupture of membranes with clear fluid. On admission her cervix was dilated to 1 cm. She was GBS positive and was started on Ancef for GBS prophylaxis. She was started on Pitocin for augmentation of labor after she was not having many contractions with her rupture of membranes. She was noted to have a fore bag of her amniotic sac on exam in the morning of hospital day #1 and she had artificial rupture of this for bag using an [place]. She had return of clear fluid. She was given an epidural for anesthesia. She was noted to have recurrent variable decelerations and an intrauterine pressure catheter was placed and amnioinfusion was started. She had a 500 mL fluid infusion initially with 50 mL/h after. She progressed to complete and pushing. Stage II: On 11/30/2019 she had a normal vaginal delivery of a live male at 00:11. Apgars of 8 & 9. Weight of 2950 g (6 lbs 8.1 oz). Length of 20.5 inches. There was a single nuchal cord that was tight around the infant's neck and unable to be reduced prior to delivery. was delivered through the nuchal cord. was delivered in SUSHIL position. The cord was doubly clamped and cut by father of the . was placed on mother's abdomen and then taken to the warmer for further resuscitation. Stage III: She had a spontaneous delivery of an intact placenta in [place] presentation. Three vessel cord. She was given pitocin and fundal massage. She had a second-degree midline perineal laceration that was repaired with 3-0 and 4-0 Vicryl. She had a small laceration on the perineal body skin that was repaired with several interrupted sutures of 4-0 Vicryl. Mom and baby were stable to recovery. EBL of 450 mL. Robert Martines MD 1:14 AM 11/30/2019 - General Info Date of Service: 11/30/19 - Patient Data Vitals - Most Recent: Last Vital Signs Temp 36.6 C 11/29/19 06:04 Pulse 82 11/29/19 06:04 Resp 14 11/29/19 06:04 BP 128/95 H 11/29/19 06:04 Pulse Ox 97 11/29/19 06:04 Weight - Most Recent: 79.605 kg I&O - Last 24 Hours: Intake & Output 11/29/19 11/29/19 11/30/19 14:59 22:59 06:59 Intake Total 560 Balance 560 Lab Results Last 24 Hours: Laboratory Results - last 24 hr 11/29/19 11/29/19 11/29/19 Range/Units 06:15 06:19 07:40 WBC (3.98-10.04) K/mm3 RBC (3.98-5.22) M/mm3 Hgb (11.2-15.7) gm/dl Hct (34.1-44.9) % MCV (79.4-94.8) fl MCH (25.6-32.2) pg MCHC (32.2-35.5) g/dl RDW Std Deviation (36.4-46.3) fL Plt Count (182-369) K/mm3 MPV (9.4-12.3) fl Neut % (Auto) (34.0-71.1) % Lymph % (Auto) (19.3-51.7) % [place] % (Auto) (4.7-12.5) % Eos % (Auto) (0.7-5.8) Baso % (Auto) (0.1-1.2) % Neut # (Auto) (1.56-6.13) K/mm3 Lymph # (Auto) (1.18-3.74) K/mm3 [place] # (Auto) (0.24-0.36) K/mm3 Eos # (Auto) (0.04-0.36) K/mm3 Baso # (Auto) (0.01-0.08) K/mm3 Membrane Rupture Positive H RPR Non-reactive (NONREACTIVE) COVID-19 ([facility]ARMEET) Negative (NEGATIVE) 11/29/19 Range/Units 07:40 WBC 9.01 (3.98-10.04) K/mm3 RBC 3.95 L (3.98-5.22) M/mm3 Hgb 11.9 (11.2-15.7) gm/dl Hct 36.5 (34.1-44.9) % MCV 92.4 (79.4-94.8) fl MCH 30.1 (25.6-32.2) pg MCHC 32.6 (32.2-35.5) g/dl RDW Std Deviation 45.1 (36.4-46.3) fL Plt Count 230 (182-369) K/mm3 MPV 10.1 (9.4-12.3) fl Neut % (Auto) 76.3 H (34.0-71.1) % Lymph % (Auto) 14.2 L (19.3-51.7) % [place] % (Auto) 8.3 (4.7-12.5) % Eos % (Auto) 0.4 L (0.7-5.8) Baso % (Auto) 0.2 (0.1-1.2) % Neut # (Auto) 6.87 H (1.56-6.13) K/mm3 Lymph # (Auto) 1.28 (1.18-3.74) K/mm3 [place] # (Auto) 0.75 H (0.24-0.36) K/mm3 Eos # (Auto) 0.04 (0.04-0.36) K/mm3 Baso # (Auto) 0.02 (0.01-0.08) K/mm3 Membrane Rupture RPR (NONREACTIVE) COVID-19 ([facility]ARMEET) (NEGATIVE) Med Orders - Current: Current Medications Diphenhydramine HCl (Benadryl) 25 mg IVPUSH Q6H PRN PRN Reason: pruritis Ephedrine Sulfate (Ephedrine Sulfate) 5 mg IVPUSH ASDIRECTED PRN PRN Reason: Hypotension Fentanyl (Sublimaze) 100 mcg EPIDUR Q3H PRN PRN Reason: Pain Last Admin: 11/29/19 12:07 Dose: 100 mcg Documented by: Fentanyl/Bupivacaine HCl (Fentanyl/Bupivacaine/Ns 2 Mcg-0.125% 100 Ml) 100 ml EPIDUR ASDIRECTED PRN PRN Reason: Pain Last Admin: 11/29/19 22:09 Dose: 100 ml Documented by: Lactated Ringer's (Ringers, Lactated) 1,000 mls @ 100 mls/hr IV ASDIRECTED ANURAG Last Admin: 11/29/19 23:21 Dose: 100 mls/hr Documented by: Cefazolin Sodium/Dextrose 1 gm (/ Premix) 50 mls @ 100 mls/hr IV Q8H ANURAG Last Admin: 11/29/19 23:26 Dose: 100 mls/hr Documented by: Oxytocin/Lactated Ringer's (Pitocin In Lr 10 Units/1,000 Ml) 10 unit in 1,000 mls @ 12 mls/hr IV TITRATE ANURAG; Protocol Last Admin: 11/29/19 23:30 Dose: 1 munits/min, 6 mls/hr Documented by: Oxytocin/Lactated Ringer's (Pitocin In Lr 10 Units/1,000 Ml) 10 unit in 1,000 mls @ 500 mls/hr IV .CONTINUOUS ANURAG Sodium Chloride (Sodium Chloride 0.9%) 1,000 mls @ 500 mls/hr IRR ASDIRECTED PRN; Protocol PRN Reason: amnioinfusion Nalbuphine HCl (Nubain) 10 mg IVPUSH Q2H PRN PRN Reason: Pain Ondansetron HCl (Zofran) 4 mg IVPUSH Q4H PRN PRN Reason: Nausea/Vomiting Sodium Chloride (Saline Flush) 10 ml FLUSH ASDIRECTED PRN PRN Reason: Keep Vein Open Discontinued Medications Acetaminophen (Tylenol) 650 mg PO NOW ONE Stop: 11/29/19 21:12 Last Admin: 11/29/19 21:20 Dose: 650 mg Documented by: Cefazolin Sodium/Dextrose 2 gm (/ Premix) 50 mls @ 100 mls/hr IV ONETIME ONE Stop: 11/29/19 08:29 Last Admin: 11/29/19 08:08 Dose: 100 mls/hr Documented by: Sodium Chloride (Normal Saline) Confirm Administered Dose 1,000 mls @ as directed .ROUTE .STK-MED ONE Stop: 11/29/19 18:37 Last Admin: 11/29/19 19:04 Dose: 500 mls/hr Documented by: - Problem List & Annotations (1) 36 weeks gestation of SNOMED Code(s): 53428753 Code(s): Z3A.36 - 36 WEEKS GESTATION OF Status: Acute Current Visit: Yes (2) Chronic hypertension during SNOMED Code(s): 94498958 Code(s): O10.919 - UNSP PRE-EXISTING HTN COMP , UNSP TRIMESTER Status: Acute Current Visit: Yes (3) GBS (group B Streptococcus carrier), +RV culture, currently SNOMED Code(s): 3532606508840, 873499385, 0390711986979 Code(s): O99.820 - STREPTOCOCCUS B CARRIER STATE COMPLICATING Status: Acute Current Visit: Yes (4) Penicillin allergy SNOMED Code(s): 14910746 Code(s): Z88.0 - ALLERGY STATUS TO PENICILLIN Status: Acute Current Visit: Yes (5) History of gastric bypass SNOMED Code(s): 960140583 Code(s): Z98.84 - BARIATRIC SURGERY STATUS Status: Acute Current Visit: Yes (6) History of herpes genitalis SNOMED Code(s): 697322902 Code(s): Z86.19 - PERSONAL HISTORY OF OTHER INFECTIOUS AND PARASITIC DISEASES Status: Acute Current Visit: Yes (7) Vaginal delivery SNOMED Code(s): 682129368 Code(s): O80 - ENCOUNTER FOR FULL-TERM UNCOMPLICATED DELIVERY Status: Acute Current Visit: Yes (8) Second degree perineal laceration during delivery SNOMED Code(s): 1693042 Code(s): O70.1 - SECOND DEGREE PERINEAL LACERATION DURING DELIVERY Status: Acute Current Visit: Yes - Problem List Review Problem List Initiated/Reviewed/Updated: Yes - My Orders Last 24 Hours: My Active Orders 11/29/19 06:04 Patient Status [ADT] Routine Non Stress Test [RC] PER UNIT ROUTINE Vital Signs [RC] PER UNIT ROUTINE Resuscitation Status Routine 11/29/19 Breakfast Regular Diet [DIET] 11/29/19 07:20 Patient Status [ADT] Routine Activity as Tolerated [RC] PFP Communication Order [RC] ASDIRECTED Heart Tones [RC] ASDIRECTED Non Stress Test [RC] PER UNIT ROUTINE Notify Provider [RC] PFP Notify Provider [RC] PRN Peripheral IV Care [RC] . DIRECTED Vital Signs [RC] PER UNIT ROUTINE Nalbuphine [Nubain] 10 mg IVPUSH Q2H PRN Ondansetron [Zofran] 4 mg IVPUSH Q4H PRN Sodium Chloride 0.9% [Saline Flush] 10 ml FLUSH ASDIRECTED PRN Electronic Heart Tones Ext w TOCO [WOMSER] Routine Electronic Heart Tones Internal [WOMSER] Per Unit Routine Peripheral IV Insertion Adult [OM.PC] Routine 11/29/19 07:30 Lactated Ringers [Ringers, Lactated] 1,000 ml IV ASDIRECTED Oxytocin/Lactated Ringers [Pitocin in LR 10 Units/1,000 ML] 10 unit in 1,000 ml IV .CONTINUOUS Oxytocin/Lactated Ringers [Pitocin in LR 10 Units/1,000 ML] 10 unit in 1,000 ml IV TITRATE 11/29/19 16:00 ceFAZolin [Ancef] 1 gm Premix Bag 1 bag IV Q8H 11/29/19 19:29 Communication Order [RC] ASDIRECTED 11/29/19 20:09 Sodium Chloride 0.9% 1,000 ml IRR ASDIRECTED - Plan Plan:: Luciana Loyola is a 29-year-old -0-1-1 female status post normal spontaneous vaginal delivery complicated by GBS positive status with mild penicillin allergy, PPROM at 36 weeks 6 days, chronic hypertension in , history of Yoanna-en-Y gastric bypass and history of genital herpes Admit to inpatient following normal spontaneous vaginal delivery Continue Pitocin per unit protocol following delivery of placenta and lactated Ringer's until tolerating regular diet Regular diet Vitals per unit routine We will continue to monitor patient's vitals closely and if she continues to have mild range blood pressures would recommend for her to restart on her antihypertensive medication Ibuprofen and Tylenol for pain control Assist with breast-feeding as needed Continue to monitor lochia Anticipate discharge home on day #1 or #2 depending on status Robert Martines MD 1:14 AM 11/30/2019
[2019-11-30] MEDS ORDERED: Benzocaine/Menthol 20%-0.5% Spray 56 GM Canister TOP ONE (04:47)
[2019-11-30] MEDS ORDERED: Witch Hazel Medicated Pads 40/Jar TOP PRN ×2 (04:48→06:24)
[2019-11-30] MEDS ORDERED: Ibuprofen 600 MG Tab PO PRN (04:49)
[2019-11-30] MEDS ORDERED: Benzocaine/Menthol 20%-0.5% Spray 56 GM Canister TOP PRN (06:24)
[2019-11-30] MEDS ORDERED: Docusate Sodium 100 MG Cap PO PRN (06:24)
[2019-11-30] MEDS ORDERED: Oxytocin/Lactated Ringers 10 UNIT/1,000 ML BAG IV SCH (06:24)
[2019-11-30] MEDS ORDERED: Hydrocortisone Acetate 25 MG Supp RECTAL PRN (06:24)
[2019-11-30] MEDS ORDERED: Magnesium Hydroxide 400 MG/5 ML Susp 30 ML Cup PO PRN (06:24)
[2019-11-30] MEDS ORDERED: Acetaminophen 325 MG Tab PO PRN (06:24)
[2019-11-30] MEDS: Prenatal Multivitamin with Calcium/Folic Acid/Iron Tab PO SCH (09:03)
[2019-11-30] MEDS: Ibuprofen 600 MG Tab PO PRN ×2 (09:03→20:05)
[2019-11-30] MEDS ORDERED: Simethicone 80 MG Tab.Chew PO PRN (17:50)
[2019-12-01] MEDS: Ibuprofen 600 MG Tab PO PRN ×2 (02:46→08:51)
[2019-12-01] MEDS: Prenatal Multivitamin with Calcium/Folic Acid/Iron Tab PO SCH (08:51)
--- NOTE | 2019-12-01 09:46 | PCM.SN.2 ---
- Free Text/Narrative Note: Post Progress Note PPD #1 Subjective: Doing well overall. Ambulating without difficulty. Lochia minimal and decreasing since yesterday. Voiding without difficulty. Tolerating regular diet without nausea or vomiting. Reports that she did have some abdominal gas pain yesterday that improved with use of simethicone. Denies any significant abdominal gas pain today. Pain controlled with oral medications. Breast- feeding with minimal difficulty. Denies any headaches, vision changes or epigastric pain. Objective: Vitals: Vital Signs - 24 hr 11/30/19 11/30/19 11/30/19 10:28 16:08 20:02 Temperature 37.1 C 37.1 C 37.2 C Pulse, 93 101 H 103 H Peripheral Respiratory 14 14 Rate Blood Pressure 137/88 132/81 137/94 H O2 Sat by Pulse 99 98 95 Oximetry 11/30/19 12/01/19 12/01/19 23:42 03:53 08:07 Temperature 37.2 C 36.9 C Pulse, 75 100 83 Peripheral Respiratory 14 14 Rate Blood Pressure 141/90 H 121/92 H 144/95 H O2 Sat by Pulse 97 97 98 Oximetry Physical Exam General: Alert and oriented, no acute distress Lungs: Clear to auscultation bilaterally Heart: Regular rate and rhythm Abdomen: Soft, minimal appropriate tenderness, non-distended, fundus midline, nontender, and at the umbilicus Extremities: No edema Laboratory Tests 11/29/19 11/29/19 11/29/19 Range/Units 06:15 06:19 07:40 WBC (3.98-10.04) K/mm3 RBC (3.98-5.22) M/mm3 Hgb (11.2-15.7) gm/dl Hct (34.1-44.9) % MCV (79.4-94.8) fl MCH (25.6-32.2) pg MCHC (32.2-35.5) g/dl RDW Std Deviation (36.4-46.3) fL Plt Count (182-369) K/mm3 MPV (9.4-12.3) fl Neut % (Auto) (34.0-71.1) % Lymph % (Auto) (19.3-51.7) % [place] % (Auto) (4.7-12.5) % Eos % (Auto) (0.7-5.8) Baso % (Auto) (0.1-1.2) % Neut # (Auto) (1.56-6.13) K/mm3 Lymph # (Auto) (1.18-3.74) K/mm3 [place] # (Auto) (0.24-0.36) K/mm3 Eos # (Auto) (0.04-0.36) K/mm3 Baso # (Auto) (0.01-0.08) K/mm3 Membrane Rupture Positive H RPR Non-reactive (NONREACTIVE) COVID-19 ([facility]) Negative (NEGATIVE) 11/29/19 Range/Units 07:40 WBC 9.01 (3.98-10.04) K/mm3 RBC 3.95 L (3.98-5.22) M/mm3 Hgb 11.9 (11.2-15.7) gm/dl Hct 36.5 (34.1-44.9) % MCV 92.4 (79.4-94.8) fl MCH 30.1 (25.6-32.2) pg MCHC 32.6 (32.2-35.5) g/dl RDW Std Deviation 45.1 (36.4-46.3) fL Plt Count 230 (182-369) K/mm3 MPV 10.1 (9.4-12.3) fl Neut % (Auto) 76.3 H (34.0-71.1) % Lymph % (Auto) 14.2 L (19.3-51.7) % [place] % (Auto) 8.3 (4.7-12.5) % Eos % (Auto) 0.4 L (0.7-5.8) Baso % (Auto) 0.2 (0.1-1.2) % Neut # (Auto) 6.87 H (1.56-6.13) K/mm3 Lymph # (Auto) 1.28 (1.18-3.74) K/mm3 [place] # (Auto) 0.75 H (0.24-0.36) K/mm3 Eos # (Auto) 0.04 (0.04-0.36) K/mm3 Baso # (Auto) 0.02 (0.01-0.08) K/mm3 Membrane Rupture RPR (NONREACTIVE) COVID-19 ([facility]) (NEGATIVE) ASSESSMENT: 29-year-old female -0-1-1 s/p normal vaginal delivery PPD #1, complicated by GBS positive status, PPROM at 36 weeks 6 days with delivery at 37 weeks gestational age, chronic hypertension in , history of Yoanna-en-Y gastric bypass and history of genital herpes PLAN: Doing well Breast-feeding with minimal difficulty. Assist as needed Lochia minimal. Continue to monitor for appropriate lochia. Continue routine care Patient continues to have mild range blood pressures in the 120s to 140s/80s to 90s. No significant elevations in her blood pressure at this time. Do not plan to restart on antihypertensive medications at this time Patient denies any symptoms of severe features of preeclampsia Discharge home today Robert Martines MD 9:45 AM 12/01/2019
--- NOTE | 2019-12-01 09:50 | PCM.DCSUM1 ---
Discharge Summary - Hospital Course Free Text/Narrative:: - General Info Date of Service: 11/30/19 Mother's Due Date: 12/21/19 - Delivery Note Labor: Augmented by Oxytocin Delivery Outcome: Livebirth Delivery Method: Spontaneous Vaginal Delivery-Single Presentation: Right Occiput Anterior (SUSHIL) Nuchal Cord: Present (Tight around infant's neck and not able to be reduced prior to delivery) Anesthesia Type: Epidural Episiotomy Type: None Laceration: 2nd Degree (Midline perineal laceration that was repaired with 3-0 and 4-0 Vicryl. She had a laceration on the skin of the perineal body that was repaired with interrupted sutures of 4-0 Vicryl.) Suture type: Vicryl Suture size: 3-0 Placenta: Intact, Spontaneous Cord: 3 Vessels Estimated Blood Loss: 450 Resuscitation Needed: No [place]: Suctioned, Bulb Syringe, Stimulated, Warmed, [place] Used, Warmer Used Provider: Robert Martines Score 1 min: 8 Score 5 min: 9 Second Stage Interventions: Reports: Pushing Effectively, Pushing, Stirrups/Leg Supports Delivery Comments (Free Text/Narrative):: Stage I: Luciana Loyola was admitted for prelabor rupture of membranes with clear fluid. On admission her cervix was dilated to 1 cm. She was GBS positive and was started on Ancef for GBS prophylaxis. She was started on Pitocin for augmentation of labor after she was not having many contractions with her rupture of membranes. She was noted to have a fore bag of her amniotic sac on exam in the morning of hospital day #1 and she had artificial rupture of this for bag using an [place]. She had return of clear fluid. She was given an epidural for anesthesia. She was noted to have recurrent variable decelerations and an intrauterine pressure catheter was placed and amnioinfusion was started. She had a 500 mL fluid infusion initially with 50 mL/h after. She progressed to complete and pushing. Stage II: On 11/30/2019 she had a normal vaginal delivery of a live male at 00:11. Apgars of 8 & 9. Weight of 2950 g (6 lbs 8.1 oz). Length of 20.5 inches. There was a single nuchal cord that was tight around the infant's neck and unable to be reduced prior to delivery. was delivered through the nuchal cord. was delivered in SUSHIL position. The cord was doubly clamped and cut by father of the infant. Infant was placed on mother's abdomen and then taken to the warmer for further resuscitation. Stage III: She had a spontaneous delivery of an intact placenta in [place] presentation. Three vessel cord. She was given pitocin and fundal massage. She had a second-degree midline perineal laceration that was repaired with 3-0 and 4-0 Vicryl. She had a small laceration on the perineal body skin that was repaired with several interrupted sutures of 4-0 Vicryl. Mom and baby were stable to recovery. EBL of 450 mL. HPI Initial Comments: - General Info Date of Service: 11/30/19 Mother's Due Date: 12/21/19 - Delivery Note Labor: Augmented by Oxytocin Delivery Outcome: Livebirth Infant Delivery Method: Spontaneous Vaginal Delivery-Single Presentation: Right Occiput Anterior (SUSHIL) Nuchal Cord: Present (Tight around 's neck and not able to be reduced prior to delivery) Anesthesia Type: Epidural Episiotomy Type: None Laceration: 2nd Degree (Midline perineal laceration that was repaired with 3-0 and 4-0 Vicryl. She had a laceration on the skin of the perineal body that was repaired with interrupted sutures of 4-0 Vicryl.) Suture type: Vicryl Suture size: 3-0 Placenta: Intact, Spontaneous Cord: 3 Vessels Estimated Blood Loss: 450 Resuscitation Needed: No : Suctioned, Bulb Syringe, Stimulated, Warmed, [place] Used, Warmer Used Provider: Robert Martines Score 1 min: 8 Score 5 min: 9 Second Stage Interventions: Reports: Pushing Effectively, Pushing, Stirrups/Leg Supports Delivery Comments (Free Text/Narrative):: Stage I: Luciana Loyola was admitted for prelabor rupture of membranes with clear fluid. On admission her cervix was dilated to 1 cm. She was GBS positive and was started on Ancef for GBS prophylaxis. She was started on Pitocin for augmentation of labor after she was not having many contractions with her rupture of membranes. She was noted to have a fore bag of her amniotic sac on exam in the morning of hospital day #1 and she had artificial rupture of this for bag using an [place]. She had return of clear fluid. She was given an epidural for anesthesia. She was noted to have recurrent variable decelerations and an intrauterine pressure catheter was placed and amnioinfusion was started. She had a 500 mL fluid infusion initially with 50 mL/h after. She progressed to complete and pushing. Stage II: On 11/30/2019 she had a normal vaginal delivery of a live male at 00:11. Apgars of 8 & 9. Weight of 2950 g (6 lbs 8.1 oz). Length of 20.5 inches. There was a single nuchal cord that was tight around the 's neck and unable to be reduced prior to delivery. was delivered through the nuchal cord. was delivered in SUSHIL position. The cord was doubly clamped and cut by father of the . was placed on mother's abdomen and then taken to the warmer for further resuscitation. Stage III: She had a spontaneous delivery of an intact placenta in [place] presentation. Three vessel cord. She was given pitocin and fundal massage. She had a second-degree midline perineal laceration that was repaired with 3-0 and 4-0 Vicryl. She had a small laceration on the perineal body skin that was repaired with several interrupted sutures of 4-0 Vicryl. Mom and baby were stable to recovery. EBL of 450 mL. Brief History: - General Info. Date of Service: 11/30/19. Mother's Due Date: 12/21/19. - Delivery Note. Labor: Augmented by Oxytocin. Delivery Outcome: Livebirth. Infant Delivery Method: Spontaneous Vaginal Delivery-Single. Presentation: Right Occiput Anterior (SUSHIL). Nuchal Cord: Present (Tight around infant's neck and not able to be reduced prior to delivery). Anesthesia Type: Epidural. Episiotomy Type: None. Laceration: 2nd Degree (Midline perineal lac eration that was repaired with 3-0 and 4-0 Vicryl. She had a laceration on the skin of the perineal body that was repaired with interrupted sutures of 4-0 Vicryl.). Suture type: Vicryl. Suture size: 3-0. Placenta: Intact, Spontaneous. Cord: 3 Vessels. Estimated Blood Loss: 450. Resuscitation Needed: No. : Suctioned, Bulb Syringe, Stimulated, Warmed, [place] Used, Warmer Used. Provider: Robert Martines. Score 1 min: 8. Score 5 min: 9. Second Stage Interventions: Reports: Pushing Effectively, Pushing, Stirrups/Leg Supports. Delivery Comments (Free Text/Narrative):: Stage I: Luciana Loyola was admitted for prelabor rupture of membranes with clear fluid. On admission her cervix was dilated to 1 cm. She was GBS positive and was started on Ancef for GBS prophylaxis. She was started on Pitocin for augmentation of labor after she was not having many contractions with her rupture of membranes. She was noted to have a fore bag of her amniotic sac on exam in the morning of hospital day #1 and she had artificial rupture of this for bag using an [place]. She had return of clear fluid. She was given an epidural for anesthesia. She was noted to have recurrent variable decelerations and an intrauterine pressure catheter was placed and amnioinfusion was started. She had a 500 mL fluid infusion initially with 50 mL/h after. She progressed to complete and pushing. Stage II: On 11/30/2019 she had a normal vaginal delivery of a live male infant at 00:11. Apgars of 8 & 9. Weight of 2950 g (6 lbs 8.1 oz). Length of 20.5 inches. There was a single nuchal cord that was tight around the infant's neck and unable to be reduced prior to delivery. Infant was delivered through the nuchal cord. was delivered in SUSHIL position. The cord was doubly clamped and cut by father of the infant. was placed on mother's abdomen and then taken to the warmer for further resuscitation. Stage III: She had a spontaneous delivery of an intact placenta in [place] presentation. Three vessel cord. She was given pitocin and fundal massage. She had a second-degree midline perineal laceration that was repaired with 3-0 and 4-0 Vicryl. She had a small laceration on the perineal body skin that was repaired with several interrupted sutures of 4-0 Vicryl. Mom and baby were stable to recovery. EBL of 450 mL. Diagnosis: Stroke: No - Discharge Data Discharge Date: 12/01/19 Discharge Disposition: Home, Self-Care 01 Condition: Good - Referral to Home Health Primary Care Physician: Robert Martines MD - Discharge Diagnosis/Problem(s) (1) 36 weeks gestation of SNOMED Code(s): 40544117 ICD Code: Z3A.36 - 36 WEEKS GESTATION OF Status: Acute Current Visit: Yes (2) Chronic hypertension during SNOMED Code(s): 01259465 ICD Code: O10.919 - UNSP PRE-EXISTING HTN COMP , UNSP TRIMESTER Status: Acute Current Visit: Yes (3) GBS (group B Streptococcus carrier), +RV culture, currently SNOMED Code(s): 1618811746245, 827288687, 0670768411523 ICD Code: O99.820 - STREPTOCOCCUS B CARRIER STATE COMPLICATING Status: Acute Current Visit: Yes (4) Penicillin allergy SNOMED Code(s): 27877535 ICD Code: Z88.0 - ALLERGY STATUS TO PENICILLIN Status: Acute Current Visit: Yes (5) History of gastric bypass SNOMED Code(s): 360563312 ICD Code: Z98.84 - BARIATRIC SURGERY STATUS Status: Acute Current Visit: Yes (6) History of herpes genitalis SNOMED Code(s): 709132337 ICD Code: Z86.19 - PERSONAL HISTORY OF OTHER INFECTIOUS AND PARASITIC DISEASES Status: Acute Current Visit: Yes (7) Vaginal delivery SNOMED Code(s): 987543318 ICD Code: O80 - ENCOUNTER FOR FULL-TERM UNCOMPLICATED DELIVERY Status: Acute Current Visit: Yes (8) Second degree perineal laceration during delivery SNOMED Code(s): 0931846 ICD Code: O70.1 - SECOND DEGREE PERINEAL LACERATION DURING DELIVERY Status: Acute Current Visit: Yes - Patient Summary/Data Complications: None Consults: None Hospital Course: Luciana Loyola was admitted for prelabor rupture of membranes with clear fluid. On admission her cervix was dilated to 1 cm. She was GBS positive and was started on Ancef for GBS prophylaxis. She was given pitocin for augmentation. She had artificial rupture of membranes of a fore bag of her amniotic sac that was noted on exam with clear fluid. She was given an epidural for anesthesia. She had placement of an intrauterine pressure catheter with amnioinfusion for recurrent variable decelerations. She progressed to complete and began pushing. On 11/30/2019 she had a normal vaginal delivery of a live male infant at 00:11. Apgars of 8 and 9. Weight of 2950 g (6 pounds 8.1 ounces). Her course was uneventful. Her pain was well controlled and she had minimal lochia. She was ambulating, tolerating a regular diet and voiding normally. She was breast-feeding with minimal difficulty. She was afebrile and her hematocrit was 36.5 on admission. She desired to be discharged home on the morning of PPD #1. Her blood type is O+. - Patient Instructions Diet: Regular Diet as Tolerated Activity: Apply Ice, As Tolerated Activity, Other: Nothing in the vagina for 6 weeks Driving: May Drive Today Showering/Bathing: May Shower Notify Provider of: Fever, Increased Pain, Swelling and Redness, Drainage, Nausea and/or Vomiting Other/Special Instructions: Please contact your physician's office if you have heavy vaginal bleeding enough to soak a pad in less than an hour for several hours. Monitor for any signs of an infection in the breasts with severe pain or redness of the breast. Please contact your physician's office if you have a severe headache that does not improve with Tylenol or ibuprofen, spots in your vision or severe pain in your upper abdomen. - Discharge Plan *PRESCRIPTION DRUG MONITORING PROGRAM REVIEWED*: Not Applicable *COPY OF PRESCRIPTION DRUG MONITORING REPORT IN PATIENT GRACIELA: Not Applicable Home Medications: Home Meds Cholecalciferol (Vitamin D3) [Vitamin D] 5,000 unit PO DAILY 11/29/19 [History] Cimetidine [Tagamet] 200 mg PO 11/29/19 [History] Cyclobenzaprine [Flexeril] 10 mg PO TID PRN 11/29/19 [History] L.acidoph,Paracasei, B.lactis [Probiotic] 1 each PO DAILY 11/29/19 [History] Pnv No.95/Ferrous Fum/Folic AC [ Tablet] 1 each PO DAILY 11/29/19 [History] Acetaminophen [Tylenol] 650 mg PO Q6H PRN tablet 12/01/19 [Rx] Benzocaine/Menthol [Dermoplast Pain Relief [place]] 1 spray TOP ASDIRECTED PRN canister 12/01/19 [Rx] Docusate Sodium [Colace] 100 mg PO BID PRN cap 12/01/19 [Rx] Hydrocortisone Acetate [Anucort-HC] 25 mg RECTAL BID PRN supp 12/01/19 [Rx] Ibuprofen [Motrin] 600 mg PO Q6H PRN tablet 12/01/19 [Rx] Simethicone 80 mg PO Q6H PRN tab.chew 12/01/19 [Rx] tawanna Cagle [Tucks] 1 pad TOP ASDIRECTED PRN pad 12/01/19 [Rx] Patient Handouts: Care of a Perineal Tear, Care After Vaginal Delivery Referrals: Robert Martines MD [Primary Care Provider] - (Follow-up for routine care on 12/04, 12/08 or 12/10/2019 or earlier as needed.) - Discharge Summary/Plan Comment DC Time >30 min.: No - Patient Data Vitals - Most Recent: Last Vital Signs Temp 36.9 C 12/01/19 08:07 Pulse 83 12/01/19 08:07 Resp 14 12/01/19 08:07 BP 144/95 H 12/01/19 08:07 Pulse Ox 98 12/01/19 08:07 Weight - Most Recent: 79.605 kg I&O - Last 24 hours: Intake & Output 11/30/19 12/01/19 12/01/19 22:59 06:59 14:59 Intake Total 480 Balance 480 Med Orders - Current: Current Medications Acetaminophen (Tylenol) 650 mg PO Q6H PRN PRN Reason: mild pain or fever Last Admin: 11/30/19 06:31 Dose: 650 mg Documented by: Benzocaine/Menthol (Dermoplast Pain Relief [place]) 0 gm TOP ASDIRECTED PRN PRN Reason: Perineal Comfort Measure Docusate Sodium (Colace) 100 mg PO BID PRN PRN Reason: Constipation Hydrocortisone Acetate (Anucort-Hc) 25 mg RECTAL BID PRN PRN Reason: Hemorrhoid pain Oxytocin/Lactated Ringer's (Pitocin In Lr 10 Units/1,000 Ml) 10 unit in 1,000 mls @ 100 mls/hr IV TITRATE ANURAG; Protocol Ibuprofen (Motrin) 600 mg PO Q6H PRN PRN Reason: Mild pain or fever Last Admin: 12/01/19 08:51 Dose: 600 mg Documented by: Magnesium Hydroxide (Milk Of Magnesia) 30 ml PO BEDTIME PRN PRN Reason: Constipation Prenat Multivit/Rotary Lithographic Press Operator/Iron/Folic Ac ( Plus Iron) 1 each PO DAILY ANURAG Last Admin: 12/01/19 08:51 Dose: 1 each Documented by: Simethicone (Simethicone) 80 mg PO Q6H PRN PRN Reason: Gas Last Admin: 11/30/19 18:55 Dose: 80 mg Documented by: Tawanna Cagle (Elizabeth) 1 pad TOP ASDIRECTED PRN PRN Reason: Perineal Comfort Measure Discontinued Medications Acetaminophen (Tylenol) 650 mg PO NOW ONE Stop: 11/29/19 21:12 Last Admin: 11/29/19 21:20 Dose: 650 mg Documented by: Benzocaine/Menthol (Dermoplast Pain Relief [place]) 15 gm TOP ONETIME ONE Stop: 11/30/19 04:48 Last Admin: 11/30/19 06:17 Dose: 1 canister Documented by: Diphenhydramine HCl (Benadryl) 25 mg IVPUSH Q6H PRN PRN Reason: pruritis Ephedrine Sulfate (Ephedrine Sulfate) 5 mg IVPUSH ASDIRECTED PRN PRN Reason: Hypotension Fentanyl (Sublimaze) 100 mcg EPIDUR Q3H PRN PRN Reason: Pain Last Admin: 11/29/19 12:07 Dose: 100 mcg Documented by: Fentanyl/Bupivacaine HCl (Fentanyl/Bupivacaine/Ns 2 Mcg-0.125% 100 Ml) 100 ml EPIDUR ASDIRECTED PRN PRN Reason: Pain Last Admin: 11/29/19 22:09 Dose: 100 ml Documented by: Lactated Ringer's (Ringers, Lactated) 1,000 mls @ 100 mls/hr IV ASDIRECTED [facility] Last Admin: 11/29/19 23:21 Dose: 100 mls/hr Documented by: Cefazolin Sodium/Dextrose 2 gm (/ Premix) 50 mls @ 100 mls/hr IV ONETIME ONE Stop: 11/29/19 08:29 Last Admin: 11/29/19 08:08 Dose: 100 mls/hr Documented by: Cefazolin Sodium/Dextrose 1 gm (/ Premix) 50 mls @ 100 mls/hr IV Q8H [facility] Last Admin: 11/29/19 23:26 Dose: 100 mls/hr Documented by: Oxytocin/Lactated Ringer's (Pitocin In Lr 10 Units/1,000 Ml) 10 unit in 1,000 m ls @ 12 mls/hr IV TITRATE ANURAG; Protocol Last Admin: 11/29/19 23:30 Dose: 1 munits/min, 6 mls/hr Documented by: Oxytocin/Lactated Ringer's (Pitocin In Lr 10 Units/1,000 Ml) 10 unit in 1,000 mls @ 500 mls/hr IV .CONTINUOUS ANURAG Sodium Chloride (Normal Saline) Confirm Administered Dose 1,000 mls @ as directed .ROUTE .[facility] ONE Stop: 11/29/19 18:37 Last Admin: 11/29/19 19:04 Dose: 500 mls/hr Documented by: Sodium Chloride (Sodium Chloride 0.9%) 1,000 mls @ 500 mls/hr IRR ASDIRECTED PRN; Protocol PRN Reason: amnioinfusion Ibuprofen (Motrin) 600 mg PO Q6H PRN PRN Reason: Pain Last Admin: 11/30/19 02:30 Dose: 600 mg Documented by: Nalbuphine HCl (Nubain) 10 mg IVPUSH Q2H PRN PRN Reason: Pain Ondansetron HCl (Zofran) 4 mg IVPUSH Q4H PRN PRN Reason: Nausea/Vomiting Sodium Chloride (Saline Flush) 10 ml FLUSH ASDIRECTED PRN PRN Reason: Keep Vein Open Witnan Cagle (Tucks) 1 pad TOP ASDIRECTED PRN PRN Reason: Pain Last Admin: 11/30/19 06:18 Dose: 1 canister Documented by:
== END 2019-12-01 13:00 | disposition home or self-care (01) | DRG 560 ==
LOC: JD.OB 05:53 → JD.OBCHECK 05:53 → JD.OB 07:20 → JD.OBCHECK 07:20 → OBSVTOIN 11-30 00:11 → JD.OB 11-30 00:12
PROVIDERS: ADMIT Obstetrics & Gynecology; ATTEND Obstetrics & Gynecology
PROC: 10E0XZZ Delivery of Products of Conception, External Approach (ICD-10-PCS; principal; 2019-11-30)
PROC: 10907ZC Drainage of Amniotic Fluid, Therapeutic from Products of Conception, Via Natural or Artificial Opening (ICD-10-PCS; 2019-11-30)
PROC: 0KQM0ZZ Repair Perineum Muscle, Open Approach (ICD-10-PCS; 2019-11-30)
PROC: 10H07YZ Insertion of Other Device into Products of Conception, Via Natural or Artificial Opening (ICD-10-PCS; 2019-11-30)
PROC: 3E0R3BZ Introduction of Anesthetic Agent into Spinal Canal, Percutaneous Approach (ICD-10-PCS; 2019-11-30)
PROC: 00HU33Z Insertion of Infusion Device into Spinal Canal, Percutaneous Approach (ICD-10-PCS; 2019-11-30)
DX: O60.14X0 Preterm labor third trimester with preterm delivery third trimester, not applicable or unspecified (principal); Z3A.36 36 weeks gestation of pregnancy; Z37.0 Single live birth; O70.1 Second degree perineal laceration during delivery; O69.1XX0 Labor and delivery complicated by cord around neck, with compression, not applicable or unspecified; O16.4 Unspecified maternal hypertension, complicating childbirth; Z20.828 Contact with and (suspected) exposure to other viral communicable diseases; Z88.0 Allergy status to penicillin; Z88.2 Allergy status to sulfonamides; Z79.82 Long term (current) use of aspirin; O76 Abnormality in fetal heart rate and rhythm complicating labor and delivery
CPT/HCPCS: 01967; 36415; 51702; 59025; 59409; 84112; 85025; 86592; A9270-GY; J0690; J2590; J3010; J3490; J7030; J7120; U0002

== ENCOUNTER 2020-01-28 15:43 | Emergency (ER) | payer BC ==
[2020-01-28] MEDS ORDERED: Ketorolac 60 MG/2 ML SDV IM ONE (16:20)
--- NOTE | 2020-01-28 16:33 | EDM.PDOC ---
ED HPI GENERAL MEDICAL PROBLEM - General Chief Complaint: Flank Pain Stated Complaint: KIDNEY STONES Time Seen by Provider: 01/28/20 15:56 Source of Information: Reports: Patient, RN Notes Reviewed History Limitations: Reports: No Limitations - History of Present Illness INITIAL COMMENTS - FREE TEXT/NARRATIVE: Patient is a 29-year-old female presenting to the emergency department with complaints of low back pain that started around 11 AM today. She describes it as bilateral aching in her low back. She states she has a history of kidney stones and thinks she could possibly have 1 again. They have been moving so she has been doing some repetitive lifting but states that she has not lifted anything very heavy. She has not taken anything for pain. Denies any fever, nausea, or vomiting. Bilateral Flank Pain Score (Numeric/FACES): 8 - Related Data Allergies Allergy/AdvReac Type Severity Reaction Status Date / Time amoxicillin Allergy Rash Verified 01/28/20 16:08 Penicillins Allergy Rash Verified 01/28/20 16:08 sulfamoxole Allergy Rash Verified 01/28/20 16:08 Home Meds: Home Meds Cholecalciferol (Vitamin D3) [Vitamin D] 5,000 unit PO DAILY 11/29/19 [History] Cimetidine [Tagamet] 200 mg PO 11/29/19 [History] Cyclobenzaprine [Flexeril] 10 mg PO TID PRN 11/29/19 [History] L.acidoph,Paracasei, B.lactis [Probiotic] 1 each PO DAILY 11/29/19 [History] Pnv No.95/Ferrous Fum/Folic AC [ Tablet] 1 each PO DAILY 11/29/19 [History] Acetaminophen [Tylenol] 650 mg PO Q6H PRN tablet 12/01/19 [Rx] Benzocaine/Menthol [Dermoplast Pain Relief [place]] 1 spray TOP ASDIRECTED PRN canister 12/01/19 [Rx] Docusate Sodium [Colace] 100 mg PO BID PRN cap 12/01/19 [Rx] Hydrocortisone Acetate [Anucort-HC] 25 mg RECTAL BID PRN supp 12/01/19 [Rx] Ibuprofen [Motrin] 600 mg PO Q6H PRN tablet 12/01/19 [Rx] Simethicone 80 mg PO Q6H PRN tab.chew 12/01/19 [Rx] witch Diana [Tucks] 1 pad TOP ASDIRECTED PRN pad 12/01/19 [Rx] Naproxen [Naprosyn] 500 mg PO Q12HR 5 Days #10 tab 01/28/20 [Rx] Past Medical History Cardiovascular History: Reports: Hypertension Respiratory History: Reports: None Gastrointestinal History: Reports: GERD Genitourinary History: Reports: Renal Calculus 911 DISPATCHER History: Reports: , Spontaneous Oncologic (Cancer) History: Reports: None Dermatologic History: Reports: Eczema Other Dermatologic History: HSV - Infectious Disease History 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 Denies: Fever HEENT: Reports: No Symptoms Respiratory: Reports: No Symptoms Cardiovascular: Reports: No Symptoms Endocrine: Reports: No Symptoms GI/Abdominal: Reports: No Symptoms : Reports: No Symptoms Musculoskeletal: Reports: Back Pain Skin: Reports: No Symptoms Neurological: Reports: No Symptoms Psychiatric: Reports: No Symptoms Hematologic/Lymphatic: Reports: No Symptoms Immunologic: Reports: No Symptoms ED EXAM,LOWER BACK PAIN/INJURY - Physical Exam Exam: See Below Exam Limited By: No Limitations General Appearance: Alert, WD/WN, No Apparent Distress Respiratory/Chest: No Respiratory Distress, Lungs Clear, Normal Breath Sounds, No Accessory Muscle Use, Chest Non-Tender Cardiovascular: Normal Peripheral Pulses, Regular Rate, Rhythm, No Edema, No Gallop, No JVD, No Murmur, No Rub GI/Abdominal: Normal Bowel Sounds, Soft, Non-Tender, No Organomegaly, No Distention, No Abnormal Bruit, No Mass Back Exam: Normal Inspection, Full Range of Motion, Paraspinal Tenderness (bilateral to L3-L5), Vertebral Tenderness (L3-L5). No: CVA Tenderness (L), CVA Tenderness (R) Neurological: Alert, Normal Mood/Affect, Normal Dorsiflexion, CN II-XII Intact, Normal Plantar Flexion, Normal Gait, Normal Reflexes, No Motor/Sensory Deficits, Oriented x 3 Psychiatric: Normal Affect, Normal Mood Skin Exam: Warm, Dry, Intact, Normal Color, No Rash Course - Vital Signs Last Recorded V/S: Last Vital Signs Temp 97.7 F 01/28/20 16:00 Pulse 77 01/28/20 16:00 Resp 16 01/28/20 16:00 BP 174/98 H 01/28/20 16:00 Pulse Ox 97 01/28/20 16:00 - Orders/Labs/Meds Orders: Active Orders 24 hr Category Date Time Status CULTURE URINE [RM] Stat Lab 01/28/20 17:51 Ordered Labs: Laboratory Tests 01/28/20 Range/Units 17:00 Urine Color Yellow (Yellow) Urine Appearance Clear (Clear) Urine pH 6.5 (5.0-8.0) Ur Specific [place] 1.020 (1.005-1.030) Urine Protein Negative (Negative) Urine Glucose (UA) Negative (Negative) Urine Ketones Negative (Negative) Urine Occult Blood Negative (Negative) Urine Nitrite Negative (Negative) Urine Bilirubin Negative (Negative) Urine Urobilinogen 0.2 (0.2-1.0) Ur Leukocyte Esterase Trace H (Negative) Urine RBC 0-5 (0-5) /hpf Urine WBC 0-5 (0-5) /hpf Ur Squamous Epith Cells 0-5 (0-5) /hpf Urine Bacteria Few (FEW) /hpf Urine Mucus Not seen (FEW) /hpf Meds: Medications Discontinued Medications Generic Name Dose Route Start Last Admin Trade Name Freq PRN Reason Stop Dose Admin Ketorolac Tromethamine 60 mg 01/28/20 16:20 01/28/20 17:15 Toradol IM 01/28/20 16:21 60 mg ONETIME ONE Administration - Re-Assessments/Exams Free Text/Narrative Re-Assessment/Exam: Patient is a 29-year-old female presenting to the emergency department with complaints of low back pain. Symptoms started around 11 AM today. She has been doing some repetitive lifting, but states that she has not been lifting very heavy objects. Her exam is more consistent with a lumbar strain as opposed to kidney pathology. She has no CVA tenderness, however does have tenderness to palpation of L3-L5 as well as the bilateral paraspinous muscles. I ordered a urinalysis as well as Toradol 60 mg IM. 01/28/20 17:52 Urinalysis was negative for blood. Did have trace leukocyte esterase, however was negative for WBCs or bacteria. I will send the urine for culture. Discussed that her pain is likely due to a lumbar strain. She did have improvement in pain with the Toradol. I will send a prescription for Naprosyn. Discharge instructions as documented Departure - Departure Time of Disposition: 17:53 Disposition: Home, Self-Care 01 Condition: Good Clinical Impression: Lumbar strain Qualifiers: Encounter type: initial encounter Qualified Code(s): S39.012A - Strain of muscle, fascia and tendon of lower back, initial encounter - Discharge Information *PRESCRIPTION DRUG MONITORING PROGRAM REVIEWED*: No *COPY OF PRESCRIPTION DRUG MONITORING REPORT IN PATIENT GRACIELA: No Prescriptions: Naproxen [Naprosyn] 500 mg PO Q12HR 5 Days #10 tab Instructions: Lumbar Sprain Referrals: Lalita Avery [facility] [Primary Care Provider] - Forms: ED Department Discharge Additional Instructions: You were seen in the emergency department this evening for low back pain. Urinalysis was completed and was negative for blood indicating it is highly unlikely that you have a kidney stone. Your exam was compatible with a lumbar strain. Urinalysis was sent for culture. If this should grow to bacteria requiring treatment, you will be notified. A prescription for Naprosyn has been sent to [facility]. Take this medication as prescribed. Recommend intermittent heat to the low back. Doing gentle stretches will also help to relax the muscles. Return to ER as needed. Sepsis Event Note (ED) - Evaluation Sepsis Screening Result: No Definite Risk - Focused Exam Vital Signs: Vital Signs Temp Pulse Resp BP Pulse Ox 01/28/20 16:00 97.7 F 77 16 174/98 H 97 - My Orders Last 24 Hours: My Active Orders 01/28/20 17:51 CULTURE URINE [RM] Stat - Assessment/Plan Last 24 Hours: My Active Orders 01/28/20 17:51 CULTURE URINE [RM] Stat
== END 2020-01-28 18:35 | disposition home or self-care (01) ==
LOC: JD.ED 15:43
DX: S39.012A Strain of muscle, fascia and tendon of lower back, initial encounter (principal); Z88.1 Allergy status to other antibiotic agents; Z88.0 Allergy status to penicillin; Z88.2 Allergy status to sulfonamides; Z79.899 Other long term (current) drug therapy; X58.XXXA Exposure to other specified factors, initial encounter
CPT/HCPCS: 81001; 87086; 96372; 99283; J1885

== ENCOUNTER 2022-01-09 20:43 | Emergency (ER) | payer BC ==
[2022-01-09] MEDS ORDERED: Ketorolac 30 MG/ML SDV IVPUSH ONE (21:13)
[2022-01-09] MEDS ORDERED: Sodium Chloride 0.9% 10 ML Syringe FLUSH PRN (21:13)
[2022-01-09] MEDS ORDERED: Sodium Chloride 0.9% 1,000 ML IV ONE (21:13)
[2022-01-09] MEDS ORDERED: Ondansetron 4 MG/2 ML SDV IVPUSH ONE (21:13)
[2022-01-09] MEDS ORDERED: HYDROmorphone 0.5 MG/0.5 ML Syringe IVPUSH ONE ×2 (21:51→22:40)
[2022-01-09] MEDS ORDERED: Orphenadrine 100 MG Tab.ER PO STA (22:08)
== END 2022-01-09 22:54 | disposition home or self-care (01) ==
LOC: JD.ED 20:43
DX: M62.838 Other muscle spasm (principal); I10 Essential (primary) hypertension; E66.9 Obesity, unspecified; Z68.30 Body mass index [BMI] 30.0-30.9, adult; Z88.0 Allergy status to penicillin; Z88.2 Allergy status to sulfonamides; Z79.899 Other long term (current) drug therapy; Z86.16 Personal history of COVID-19; Z90.49 Acquired absence of other specified parts of digestive tract
CPT/HCPCS: 36415; 74176; 80053; 81001; 83735; 85025; 96361; 96374; 96375; 96376; 99284; A9270; J1170; J1885; J2405; J3490; J7030

== ENCOUNTER 2022-01-10 21:43 | Emergency (ER) | payer BC ==
[2022-01-10] MEDS ORDERED: Sodium Chloride 0.9% 1,000 ML IV SCH (23:45)
[2022-01-10] MEDS ORDERED: Ondansetron 4 MG/2 ML SDV IVPUSH ONE (23:47)
[2022-01-10] MEDS ORDERED: HYDROmorphone 1 MG/ML Syringe IVPUSH ONE (23:47)
[2022-01-11] MEDS ORDERED: Iopamidol 612 MG/ML 100 ML Bottle IVPUSH ONE (00:19)
[2022-01-11 00:31] LABS: ESTIMATED GFR 121 mL/min (>60)
[2022-01-11] MEDS ORDERED: Ibuprofen 600 MG Tab PO ONE (02:20)
== END 2022-01-11 02:38 | disposition home or self-care (01) ==
LOC: JD.ED 21:43
DX: M54.50 Low back pain, unspecified (principal); I10 Essential (primary) hypertension; F17.210 Nicotine dependence, cigarettes, uncomplicated; E66.9 Obesity, unspecified; Z68.30 Body mass index [BMI] 30.0-30.9, adult; Z88.0 Allergy status to penicillin; Z88.2 Allergy status to sulfonamides; Z79.899 Other long term (current) drug therapy
CPT/HCPCS: 36415; 74177; 80053; 83605; 83690; 85007; 85027; 86140; 96361; 96374; 96375; 99284; J1170; J2405; J7030; Q9967

== ENCOUNTER 2024-12-05 19:08 | Emergency (ER) | payer OTHER ==
[2024-12-05] MEDS: Sodium Chloride 0.9% 10 ML Syringe FLUSH PRN (19:45)
[2024-12-05 20:02] LABS: APPEARANCE,URINE CLEAR (Clear); GLUCOSE,URINE NEGATIVE (Negative); OCCULT BLOOD,URINE NEGATIVE (Negative)
[2024-12-05 20:11] LABS: BASOPHILS ABSOLUTE AUTO 0.0 K/mm3 (0.0-0.2); BASOPHILS PERCENT AUTO 0.3 % (0.0-1.0); EOSINOPHILS ABSOLUTE AUTO 0.1 K/mm3 (0.0-0.4); EOSINOPHILS PERCENT AUTO 0.7 % (0.0-6.0); IMMATURE GRAN ABSOLUTE AUTO 0.04 K/mm3 (0.00-0.05); IMMATURE GRAN PERCENT AUTO 0.4 % (0.0-0.4); LYMPHOCYTES ABSOLUTE AUTO 1.9 K/mm3 (1.0-4.8); LYMPHOCYTES PERCENT AUTO 19.0 % (24.0-44.0); MEAN PLATELET VOLUME 9.8 fl (9.4-12.3); MONOCYTES ABSOLUTE AUTO 0.7 K/mm3 (0.0-0.8); MONOCYTES PERCENT AUTO 7.1 % (0.0-8.0); NEUTROPHILS ABSOLUTE AUTO 7.2 K/mm3 (1.8-7.7); NEUTROPHILS PERCENT AUTO 72.5 % (41.0-71.0); NRBC ABSOLUTE 0.00 (0.00-0.02); NRBC PERCENT 0.0 % (0.0-0.2); PLATELET COUNT,PLT 214 K/mm3 (150-400); RED BLOOD CELL COUNT 3.81 M/mm3 (4.10-5.30); WHITE BLOOD CELL COUNT,WBC 9.89 K/mm3 (3.9-11.3)
[2024-12-05 20:31] LABS: A/G RATIO 0.8 (1-2); ALANINE AMINOTRANSFERASE,ALT 21.0 U/L (14-59); ASPARTATE AMNIOTRANSFERASE,AST 14.0 U/L (15-37); BILIRUBIN TOTAL 0.3 mg/dL (0.2-1.0); BLOOD UREA NITROGEN,BUN 9.0 mg/dL (7-18); CARBON DIOXIDE,CO2 21.0 mEq/L (21-32); CHLORIDE,CL 104.0 mEq/L (98-107); CREATININE 0.4 mg/dL (0.55-1.02); EST CRCL DRUG DOSING (CG) 146.72 mL/min; ESTIMATED GFR 131.0 mL/min (>60); GLUCOSE RANDOM 83.0 mg/dL (70-99); POTASSIUM,K 3.8 mEq/L (3.5-5.1); PROTEIN TOTAL,TP 6.4 g/dl (6.4-8.2); SODIUM,NA 136.0 mEq/L (136-145)
== END 2024-12-05 22:18 | disposition home or self-care (01) ==
LOC: JD.ED 19:08
DX: O99.891 Other specified diseases and conditions complicating pregnancy (principal); M54.9 Dorsalgia, unspecified; I10 Essential (primary) hypertension; K21.9 Gastro-esophageal reflux disease without esophagitis; E66.9 Obesity, unspecified; Z68.31 Body mass index [BMI] 31.0-31.9, adult; Z86.16 Personal history of COVID-19; Z88.0 Allergy status to penicillin; Z88.8 Allergy status to other drugs, medicaments and biological substances; Z3A.24 24 weeks gestation of pregnancy
CPT/HCPCS: 36415; 76805; 80053; 81003; 85025; 99284; J7030; 99283

== ENCOUNTER 2025-01-21 11:27 | Emergency (ER) | payer OTHER ==
[2025-01-21 12:57] LABS: BASOPHILS ABSOLUTE AUTO 0.0 K/mm3 (0.0-0.2); BASOPHILS PERCENT AUTO 0.3 % (0.0-1.0); EOSINOPHILS ABSOLUTE AUTO 0.0 K/mm3 (0.0-0.4); EOSINOPHILS PERCENT AUTO 0.3 % (0.0-6.0); IMMATURE GRAN ABSOLUTE AUTO 0.05 K/mm3 (0.00-0.05); IMMATURE GRAN PERCENT AUTO 0.4 % (0.0-0.4); LYMPHOCYTES ABSOLUTE AUTO 1.8 K/mm3 (1.0-4.8); LYMPHOCYTES PERCENT AUTO 14.5 % (24.0-44.0); MEAN PLATELET VOLUME 10.0 fl (9.4-12.3); MONOCYTES ABSOLUTE AUTO 0.7 K/mm3 (0.0-0.8); MONOCYTES PERCENT AUTO 5.5 % (0.0-8.0); NEUTROPHILS ABSOLUTE AUTO 9.7 K/mm3 (1.8-7.7); NEUTROPHILS PERCENT AUTO 79.0 % (41.0-71.0); NRBC ABSOLUTE 0.00 (0.00-0.02); NRBC PERCENT 0.0 % (0.0-0.2); PLATELET COUNT,PLT 268 K/mm3 (150-400); RED BLOOD CELL COUNT 4.61 M/mm3 (4.10-5.30); WHITE BLOOD CELL COUNT,WBC 12.27 K/mm3 (3.9-11.3)
[2025-01-21 13:01] LABS: APPEARANCE,URINE CLEAR (Clear); GLUCOSE,URINE NEGATIVE (Negative); OCCULT BLOOD,URINE NEGATIVE (Negative)
[2025-01-21 13:37] LABS: A/G RATIO 0.7 (1-2); ALANINE AMINOTRANSFERASE,ALT 22.0 U/L (14-59); ASPARTATE AMNIOTRANSFERASE,AST 23.0 U/L (15-37); BILIRUBIN TOTAL 0.5 mg/dL (0.2-1.0); BLOOD UREA NITROGEN,BUN 10.0 mg/dL (7-18); CARBON DIOXIDE,CO2 22.0 mEq/L (21-32); CHLORIDE,CL 103.0 mEq/L (98-107); CREATININE 0.4 mg/dL (0.55-1.02); EST CRCL DRUG DOSING (CG) 146.72 mL/min; ESTIMATED GFR 131.0 mL/min (>60); GLUCOSE RANDOM 79.0 mg/dL (70-99); HCG QUANTITATIVE 2374.0 mIU/mL; POTASSIUM,K 4.2 mEq/L (3.5-5.1); PROTEIN TOTAL,TP 8.0 g/dl (6.4-8.2); SODIUM,NA 137.0 mEq/L (136-145)
[2025-01-21] MEDS: Polyethylene Glycol/Electrolytes 4,000 ML Bottle PO ONE (16:34)
== END 2025-01-21 16:38 | disposition home or self-care (01) ==
LOC: JD.ED 11:27
DX: M54.6 Pain in thoracic spine (principal); E86.0 Dehydration; I10 Essential (primary) hypertension; E66.9 Obesity, unspecified; Z88.0 Allergy status to penicillin; Z88.8 Allergy status to other drugs, medicaments and biological substances; Z79.82 Long term (current) use of aspirin; Z79.899 Other long term (current) drug therapy; Z86.16 Personal history of COVID-19; Z90.49 Acquired absence of other specified parts of digestive tract
CPT/HCPCS: 36415; 80053; 81003; 83690; 84702; 85025; 86140; 96360; 96361; 99283; A9270; J7030